=== PATIENT | female | born 1955 | race Caucasian/White ===

== ENCOUNTER 2024-06-02 21:24 | Emergency (ER) | payer MEDICARE, OTHER, SELFPAY ==
[2024-06-02 21:31] VITALS: BP 160/100; PULSE 101; TEMP 36.7; O2SAT 97; BMI 31.5
--- NOTE | 2024-06-02 21:42 | CT_ITS ---
The [address] [address] Patient Name: MARITZA BONILLA MRN: [id number] date: 1955 Sex: F Assigned Patient Location: ER Current Patient Location: Accession/Order Number: [id number] Exam Date: 06/02/2024 22:05 Report Date: 06/02/2024 23:24 At the request of: ALEXIS SHAW Procedure: CT head/brain wo con EXAM: CT head/brain wo con INDICATION: 68 years old; Female. Closed head trauma. TECHNIQUE: CT Head (ax/cor/sag reformats). Ionizing radiation dose reduced via iterative reconstruction/FBP blend and body size kV/mA adjustment. Comparison: None FINDINGS: POSTOPERATIVE CHANGES: None. BRAIN PARENCHYMA: No intraparenchymal or extra-axial hemorrhage. No mass effect. No midline shift or herniation. Patchy low-density in the white matter without mass effect. VENTRICLES/EXTRA-AXIAL SPACES: Normal for patient's age. SINUSES/MASTOIDS: The visualized sinuses are clear although the maxillary sinuses are not completely included. Mastoids and middle ears are clear. Cerumen in the external auditory canals. MSK: No displaced or depressed calvarial fracture. There is a venous avelar present in the left frontal bone. OTHER: No hyperdense intraluminal thrombus. Vascular calcification is present. CT/CT head/brain wo con IMPRESSION: 1. No acute intracranial abnormality. No hemorrhage or mass effect. 2. Nonspecific white matter changes. 3. Vascular calcifications. Electronically authenticated by: SYLVAIN HARRIS Date: 06/02/2024 23:24
--- NOTE | 2024-06-02 21:43 | ED_ITS ---
HPI HPI - Head Injury General Chief complaint: Head Injury Stated complaint: HEAD INJURY Time Seen by Provider: 06/02/24 21:39 Source: patient Mode of arrival: walk-in Limitations: no limitations History of Present Illness HPI Narrative: 68-year-old female presents for an injury to the back of her head. She fell and the back of her head hit the pavement in a parking lot. No LOC and no neck pain. She did not sustain any other injuries. This happened just before coming into the emergency department. Related Data Allergies Allergy/AdvReac Type Severity Reaction Status Date / Time No Known Drug Allergies Allergy Verified 06/02/24 21:31 Opioid HPI Opioid Management Most Recent Pain and Opioid Data: No Data to Display Review of Systems ROS Narrative A ten point review of systems is negative except as noted above. PFSH PFSH Social History Little interest or pleasure in doing things: not at all Feeling down, depressed, or hopeless: not at all Exam Narrative Exam Narrative: Nurses note and vital signs reviewed and patient is not hypoxic. General: The patient appears well and in no apparent distress. Patient is resting comfortably on cart. Skin: Warm, dry, no pallor noted. There is no rash noted. Head: Normocephalic, abrasion with hematoma present just inferior to the occiput. Cervical spine nontender. Eye: Normal conjunctiva, no drainage Ears, Nose, Mouth, and Throat: oral mucosa is moist. Nares patent. Cardiovascular: Regular Rate and Rhythm Respiratory: Patient is in no distress, no accessory muscle use, lungs are clear to auscultation, no wheezing, rales or rhonchi Back: non-tender GI: Soft and nontender Musculoskeletal: The patient has no evidence of calf tenderness, no pitting edema, symmetrical pulses noted bilaterally Neurological: A&O, normal speech Psychiatric: Cooperative Constitutional Vital Signs, click to edit/add: Last Vital Signs Temp 98.1 F 06/02/24 21:31 Pulse 101 H 06/02/24 21:31 Resp 18 06/02/24 21:31 BP 160/100 H 06/02/24 21:31 Pulse Ox 97 06/02/24 21:31 O2 Del Method Room Air 06/02/24 21:31 Course Vital Signs Vital signs: Vital Signs Temperature 98.1 F 06/02/24 21:31 Pulse Rate 101 H 06/02/24 21:31 Respiratory Rate 18 12/22/24 21:31 Blood Pressure 160/100 H 06/02/24 21:31 Pulse Oximetry 97 06/02/24 21:31 Oxygen Delivery Method Room Air 06/02/24 21:31 Temperature 98.1 F 06/02/24 21:31 Pulse Rate 101 H 06/02/24 21:31 Respiratory Rate 18 06/02/24 21:31 Blood Pressure 160/100 H 06/02/24 21:31 Pulse Oximetry 97 06/02/24 21:31 Oxygen Delivery Method Room Air 06/02/24 21:31 MDM - Head Injury MDM Narrative Medical decision making narrative: CT is negative and tetanus status is updated. She is able to be discharged home. Treatment diagnosis and follow-up were discussed with the patient. Differential Diagnosis Differential diagnosis: Likely epidural hematoma, closed head injury, subarachnoid hematoma and subdural hematoma Imaging Data CT scan - head: Radiologist's impression: ITS Impressions Head CT 06/02/24 21:42 IMPRESSION: 1. No acute intracranial abnormality. No hemorrhage or mass effect. 2. Nonspecific white matter changes. 3. Vascular calcifications. Electronically authenticated by: SYLVAIN HARRIS Date: 06/02/2024 23:24 Discharge Plan Discharge Chief Complaint: Head Injury Clinical Impression: Closed head injury Patient Disposition: Home, Self-Care Time of Disposition Decision: 23:31 Condition: Good Mode of Transportation: Private Vehicle Print Language: Citizen Of [place] Instructions: Head Injury (ED) Referrals: Physician,Non-Staff, MD [Primary Care Provider] - 1 week
[2024-06-02] MEDS: ADACEL DIPH,PERTUSS(ACELL),TET VAC/PF 0.5 ML ADULT SYRINGE IM (22:31)
[2024-06-02 23:38] VITALS: BP 148/75; PULSE 88; O2SAT 97
== END 2024-06-02 23:40 | disposition home or self-care (01) ==
PROVIDERS: Emergency Provider Emergency Medicine
DX: S09.8XXA Other specified injuries of head, initial encounter (principal); S00.81XA Abrasion of other part of head, initial encounter; W18.39XA Other fall on same level, initial encounter; Z23 Encounter for immunization
CPT/HCPCS: 70450; 90471; 90715; 99285

== ENCOUNTER 2024-11-07 17:39 | Emergency (ER) | payer MEDICARE, OTHER, SELFPAY ==
--- OUTSIDE RECORDS SUMMARY | 2024-10-24 09:00 | XMS_ITS | Encounter Summary ---
Author Organization [facility] Address [address] [place] [address] Care Team Providers Care Boiler Coverer Helper Name Role Phone Cindy Lofton MD Primary Care Provider [phone] Kayleen Busby PHYSICS TECHNICIAN Unavailable [phone] Reason for Visit * Reason Comments Medicare Annual Wellness Visit Subsequen t Encounter Details Date Type Department Care Team (Late st Contact Info) Description 10/24/2024 9:00 AM EDT Office Visit [facility] [address] [place] [address] Kayleen Busby PHYSICS TECHNICIAN [address] [place], [place] [id number] Mild intermittent asthma without status asthmaticus without complication (CMS/HCC) (Primary Dx); Complete right bundle branch block (RBBB); Primary hypertension (CMS/HCC); Fibromyalgia; BMI 31.0-31.9,adult; Vitamin D deficiency; Mixed hyperlipidemia (CMS/HCC); Former smoker; Medicare annual wellness visit, subsequent Social History Tobacco Use Types Packs/Day Years Used Date Smoking Tobacco: Never Smokeless Tobacco: Never Alcohol Use Standard Drinks/Week Comments Not Currently 0 (1 standard drink = 0.6 oz pure alcohol) Caffeine intake : 1-2 cups per day PHQ-2 Answer Date Recorded Patient Health Questionnaire-2 Score 0 10/24/2024 Comments Unknown Sex and Gender Information Value Date Recorded Sex Assigned at Not on file Legal Sex Female 7:05 PM EDT Gender Identity Not on file Sexual Orientation Not on file documented as of this encounter Last Filed Vital Signs Vital Sign Reading Time Taken Comments Blood Pressure 132/80 10/24/2024 9:47 AM EDT Pulse 76 10/24/2024 8:56 AM EDT Temperature 36 C (96.8 F) 10/24/2024 8:56 AM EDT Respiratory Rate - - Oxygen Saturation 98% 10/24/2024 8:56 AM EDT Inhaled Oxygen Concentration - - Weight 87.1 kg (192 lb) 10/24/2024 8:56 AM EDT Height - - Body Mass Index 31.95 06/10/2024 2:33 PM EST documented in this encounter Functional Status * Over the past 2 weeks, how often have you been bothered by any of the following problems? Question Answer Date of Assessment Author Little interest or pleasure in doing things Not at all 10/24/2024 8:00 AM CIERAT Andreea Grande MA Feeling down, depressed, or hopeless Not at all 10/24/2024 8:00 AM EDT Andreea Grande MA Patient Health Questionnaire -2 Score 0 10/24/2024 8:00 AM EDT Andreea Grande MA * Question Answer Date of Assessment Author Trouble falling or staying asleep, or sleeping too much Not at all 10/24/2024 8:00 AM CIERAT Andreea Grande MA Feeling tired or having trista le energy Not at all 10/24/2024 8:00 AM CIERAT Andreea Grande MA Poor appetite or overeating Not at all 10/24/2024 8: 00 AM CIERAT Andreea Grande MA Feeling bad about yourself - or that you are a failure or have let yourself or your family down Not at all 10/24/2024 8:00 AM CIERAT Andreea Grande MA Trouble concentrating on things, such as reading the newspaper or watching television Not at all 10/24/2024 8:00 AM CIERAT Andreea Grande MA Moving or speaking so slowly that other people could have noticed? Or the opposite - being so fidgety or restless that you have been moving around a lot more than usual. Not at all 10/24/2024 8:00 AM CIERAT Andreea Grande MA Thoughts that you would be better off or hurting yourself in some way Not at all 10/24/2024 8:00 AM CIERAT Andreea Grande MA Patient Health Questionnaire -9 Score 0 10/24/2024 8:00 AM Andreea Herrera MA documented as of this encounter Progress Notes * Kayleen Busby NP - 10/24/2024 9:00 AM EDT Images from the original note were not included. Beverly Maunel is a 69 y.o. female presents with chief complaint of Medicare Annual Wellness Visit Subsequent HPI: Reports she is doing well and feeling good. Has been walking every day and eating well. Has lost 11lbs in the last 4 months. She has never had a colonoscopy, but knows she needs one. Declines today. Over the past 2 weeks, how often have you been bothered by any of the following problems? Little interest or pleasure in doing things: Not at all Feeling down, depressed, or hopeless: Not at all Patient Health Questionnaire-2 Score: 0 Over the past 2 weeks, how often have you been bothered by any of the following problems? Trouble falling or staying asleep, or sleeping too much: Not at all Feeling tired or having little energy: Not at all Poor appetite or overeating: Not at all Feeling bad about yourself - or that you are a failure or have let yourself or your family down: Not at all Trouble concentrating on things, such as reading the newspaper or watching television: Not at all Moving or speaking so slowly that other people could have noticed? Or the opposite - being so fidgety or restless that you have been moving around a lot more than usual.: Not at all Thoughts that you would be better off or hurting yourself in some way: Not at all Patient Health Questionnaire-9 Score: 0 Ray Fall Risk History of Falling, Immediate or Within 3 Months: No Secondary Diagnosis: No Ambulatory Aid: Walks without aid/bedrest/nurse assist Intravenous Therapy/Heparin Lock: No Gait/Transferring: Normal/bedrest/immobile Mental Status: Oriented to own ability Ray Fall Risk Score: 0 Health Risk Assessment Form Do you need help eating, bathing, using the toilet, dressing, or getting around your home?: No Can you prepare your own meals?: Yes Can you do your own housework without help?: Yes Can you shop for groceries or clothes without help?: Yes Do you exercise for about 20 minutes 3 or more days a week?: Yes How confident are you that you can control and manage most of your health problems?: Very confident Can you mange your money, credit cards and accounts, pay bills and taxes?: Yes Vision Screening: Yes, no gross abnormalities Hearing Screening: Not done Cognitive Screening Three Word Registration: River, Josette, Finger Clock Drawing: Normal Clock - 2 Three Word Recall: All 3 words correct - 3 Total Score (0-5 Points): 5 Pain Assessment Pain Score: 3 SUBJECTIVE: MEDICATIONS: ALLERGIES Current Outpatient Medications Medication Instructions acetaminophen (Tylenol 8 Hour) 650 MG ER tablet Every 8 hours atorvastatin (LIPITOR) 10 mg, Daily RT losartan (COZAAR) 50 mg, Daily Multiple Vitamin (multivitamin) capsule 1 capsule, Daily tiZANidine (ZANAFLEX) 2 mg, Oral, Daily PRN No Known Allergies PAST MEDICAL HISTORY: SOCIAL HISTORY SURGICAL HISTORY: Past Medical History: Diagnosis Date Chest pain 1992 Myalgia, unspecified site Skin tear of hand without complication, sequela Social History Tobacco Use Smoking status: Never Smokeless tobacco: Never Substance Use Topics Alcohol use: Not Currently Comment: Caffeine intake : 1-2 cups per day Drug use: Never Past Surgical History: Procedure Laterality Date TUBAL LIGATION 1993 REVIEW OF SYMPTOMS: Review of Systems Constitutional: Negative. HENT: Negative. Respiratory: Negative for cough, shortness of breath and wheezing. Cardiovascular: Negative for chest pain. Gastrointestinal: Negative for abdominal pain. Genitourinary: Negative. Musculoskeletal: Negative. Skin: Negative. Neurological: Negative. OBJECTIVE: Vitals: 10/24/24 0856 BP: 142/90 Pulse: 76 Temp: 96.8 ??F SpO2: 98% Vitals: 10/24/24 0947 BP: 132/80 Pulse: Temp: SpO2: Physical Exam Vitals and nursing note reviewed. Constitutional: Appearance: Normal appearance. HENT: Head: Normocephalic and atraumatic. Right Ear: Hearing and tympanic membrane normal. Left Ear: Hearing and tympanic membrane normal. Nose: Nose normal. Right Turbinates: Not enlarged. Left Turbinates: Not enlarged. Right Sinus: No maxillary sinus tenderness or frontal sinus tenderness. Left Sinus: No maxillary sinus tenderness or frontal sinus tenderness. Mouth/Throat: Lips: [place]. Mouth: Mucous membranes are moist. Pharynx: Oropharynx is clear. Uvula midline. Tonsils: No tonsillar exudate. Eyes: General: Lids are normal. Vision grossly intact. Gaze aligned appropriately. Extraocular Movements: Extraocular movements intact. Conjunctiva/sclera: Conjunctivae normal. Neck: Thyroid: No thyroid mass or thyromegaly. Vascular: No carotid bruit. Trachea: Trachea normal. Cardiovascular: Rate and Rhythm: Normal rate and regular rhythm. Pulses: Normal pulses. Heart sounds: Normal heart sounds. Pulmonary: Effort: Pulmonary effort is normal. Breath sounds: Normal breath sounds and air entry. Abdominal: General: Abdomen is flat. Bowel sounds are normal. Palpations: Abdomen is soft. Musculoskeletal: Cervical back: Full passive range of motion without pain, normal range of motion and neck supple. Lymphadenopathy: Cervical: No cervical adenopathy. Skin: General: Skin is warm. Capillary Refill: Capillary refill takes less than 2 seconds. Neurological: Mental Status: She is alert and oriented to person, place, and time. Sensory: Sensation is intact. Motor: Motor function is intact. Coordination: Coordination is intact. Psychiatric: Attention and Perception: Attention and perception normal. Mood and Affect: Mood and affect normal. Speech: Speech normal. Behavior: Behavior is cooperative. Thought Content: Thought content normal. ASSESSMENT AND PLAN: Assessment/Plan Diagnoses and all orders for this visit: Mild intermittent asthma without status asthmaticus without complication ([facility]) Complete right bundle branch block (RBBB) Primary hypertension ([facility]) - Comprehensive metabolic panel; Future Discussed current management plan. Goal BP less then 130/80. Discussed heart healthy diet, increasefruits and vegetables, limit salt intake. Encouraged increase physical exercise, try to be as active as possible at least 150 mins per week. Importance of weight management with a goal BMI less then 27 discussed. Discussed complications of uncontrolled blood pressure. Patient instructed to monitor BP's 1-2 times a week, keep a log, and bring to next visit. Barriers to care and medication compliance discussed. Patient voices understanding of meds. Fibromyalgia BMI 31.0-31.9,adult Vitamin D deficiency - Vitamin D 25 hydroxy; Future Mixed hyperlipidemia ([facility]) - Lipid panel; Future Former smoker Medicare annual wellness visit, subsequent Wellness performed at [facility] today. Height, weight, BMI, problem list, and immunizations records reviewed. Dental care discussed with patient. Encouraged annual vision screenings and semi-annual dental care. Encouraged healthy eating habits, limit or eliminate junk food and sources of excess calories. Encouraged regular periods of exercise, 150 minutes of exercise weekly or amount appropriate to current level of function. Discussed family/friend/social support and importance of maintaining emotional connections. Follow up annually and as needed. No follow-ups on file. documented in this encounter Plan of Treatment Not on file documented as of this encounter Procedures Procedure Name Priority Date/Time Associated Diagnosis Comments VITAMIN D 25 HYDROXY TOTAL Routine 10/24/2024 9:27 AM EDT Vitamin D deficiency LIPID PANEL Routine 10/24/2024 9:27 AM EDT Mixed hyperlipidemia (CMS/HCC) COMPREHENSIVE METABOLIC PANEL Routine 10/24/2024 9:27 AM EDT Primary hypertension (CMS/HCC) documented in this encounter Results * Vitamin D 25 hydroxy (10/24/2024 9:27 AM EDT) VITAMIN D,25-OH,TOTAL,IA 33 30 - 100 ng/mL [facility] Comment: Vitamin D Status 25-OH Vitamin D: Deficiency: <20 ng/mL Insufficiency: 20 - 29 ng/mL Optimal: > or = 30 ng/mL For 25-OH Vitamin D testing on patients on D2-supplementation and patients for whom quantitation of D2 and D3 fractions is required, the QuestAssureD(TM) 25-OH VIT D, (D2,D3), LC/MS/MS is recommended: order code [id number] (patients >2yrs). See Note 1 Note 1 For additional information, please refer to http://education.Antuit.Blink for iPhone and Android/faq/FXE940 (This link is being provided for informational/ educational purposes only.) Blood Venous blood specimen / Unknown 10/24/2024 9:27 AM EDT 10/24/2024 3:35 PM EDT Narrative Resulting Agency Comment Performing Organization Information Site ID: [email or web address] Name: [email or web address] Address: [address] [facility], [address] [place] [phone] Director: Avery Hanson MD us Kayleen Busby PHYSICS TECHNICIAN LAB BLOOD ORDERABLES Fi nal Result Performing Organization Address [facility]/ZIP Co de Phone Number [facility] * Comprehensive metabolic panel (10/24/2024 9:27 AM EDT) [facility] Glucose 95 65 - 99 mg/dL [facility] Comment: Fasting reference interval BUN 17 7 - 25 mg/dL [facility] Creatinine 0.63 0.50 - 1.05 mg/dL [facility] EGFR 97 > OR = 60 mL/min/1. 73m2 [facility] BUN/CREATININE RATIO SEE NOTE: 6 - 22 (calc) [facility] Comment: Not Reported: BUN and Creatinine are within reference range. Sodium 140 135 - 146 mmol/L [facility] Potassium, Bld 3.9 3.5 - 5.3 mmol/L [facility] Chloride 105 98 - 110 mmol/L [facility] Carbon Dioxide 28 20 - 32 mmol/L [facility] Calcium 9.1 8.6 - 10.4 mg/dL [facility] PROTEIN, TOTAL 6.9 6.1 - 8.1 g/dL [facility] ALBUMIN 4.2 3.6 - 5.1 g/dL [facility] GLOBULIN 2.7 1.9 - 3.7 g/dL (calc) [facility] ALBUMIN/GLOBULIN RATIO 1.6 1.0 - 2.5 (calc) [facility] BILIRUBIN, TOTAL 0.5 0.2 - 1.2 mg/dL [facility] ALKALINE PHOSPHATASE 92 37 - 153 U/L [facility] AST 31 10 - 35 U/L [facility] ALT 27 6 - 29 U/L [facility] Blood Venous blood specimen / Unknown 10/24/2024 9:27 AM EDT 10/24/2024 3:35 PM EDT Narrative Resulting Agency Comment Performing Organization Information Site ID: [email or web address] Name: [email or web address] Address: [address] [place] [phone] Director: Pavithra Herrera us Kayleen Busby PHYSICS TECHNICIAN LAB BLOOD ORDERABLES Fi nal Result Performing Organization Address [facility]/ZIP Co de Phone Number [facility] * Lipid panel (10/24/2024 9:27 AM EDT) CHOLESTEROL, TOTAL 155 <200 mg/dL [facility] HDL CHOLESTEROL 70 > OR = 50 mg/dL [facility] TRIGLYCERIDES 59 <150 mg/dL [facility] LDL-CHOLESTEROL 71 mg/dL (calc) [facility] Comment: Reference range: <100 Desirable range <100 mg/dL for primary prevention; <70 mg/dL for patients with CHD or diabetic patients with > or = 2 CHD risk factors. LDL-C is now calculated using the Navarro calculation, which is a validated novel method providing better accuracy than the Friedewald equation in the estimation of LDL-C. Alin VICK et al. ZEINAB. 2013;310(19): 5271-0823 (http://education.Mindjet/faq/JTY823) CHOL/HDLC RATIO 2.2 <5.0 (calc) [facility] NON HDL CHOLESTEROL 85 <130 mg/dL (calc) [facility] Comment: For patients with diabetes plus 1 major ASCVD risk factor, treating to a non-HDL-C goal of <100 mg/dL (LDL-C of <70 mg/dL) is considered a therapeutic option. Blood Venous blood specimen / Unknown 10/24/2024 9:27 AM EDT 10/24/2024 3:35 PM EDT Narrative Resulting Agency Comment Performing Organization Information Site ID: QPT Name: [email or web address] Address: [address] [place] [phone] Director: Avery Hanson MD Kayleen Busby NP LAB BLOOD ORDERABLES Fi nal Result [facility] documented in this encounter Visit Diagnoses Diagnosis Mild intermittent asthma without status asthmaticus without complication (CMS/HCC)- Primary Complete right bundle branch block (RBBB) Primary hypertension (CMS/HCC) Unspecified essential hypertension Fibromyalgia Unspecified myalgia and myositis BMI 31.0-31.9,adult Vitamin D deficiency Mixed hyperlipidemia (CMS/HCC) Mixed hyperlipidemia Former smoker Personal history of tobacco use, presenting hazards to health Medicare annual wellness visit, subsequent documented in this encounter Additional Health Concerns Assessment Noted Time PHQ-9 Depression Total Score: 0 10/25/19 8:00 AM EDT documented as of this encounter Care Teams Boiler Coverer Helper Relationship Specialty Start Date End Date Cindy Lofton MD [address] [place] [address] PCP - General Family Medicine 10/18/22 Kayleen Busby NP [address] [place], [place] [id number] PCP - [facility] Re[facility] 07/19/24 documented as of this encounter
--- OUTSIDE RECORDS SUMMARY | 2024-10-28 14:00 | XMS_ITS | Encounter Summary ---
Author Organization [facility] Address [address] [place] [address] Phone Care Team Providers Care Watch Guard Gate Name Role Phone Cindy Lofton MD Primary Care Provider [phone] Reason for Referral * Consultation (Routine) - Authorized Specialty Diagnoses / Procedures Referred By Edu erickson Referred To Contact Cardiology Diagnoses Primary hypertension Procedures Follow Up In Cardiology Silvana Soares MD [address] [place] [address] Phone: tel: fax: Silvana Soares MD [address] [place] [address] Phone: tel: fax: Referral ID Status Reason Start Date Expiration Date V isits Requested Visits Authorized [id number] Authorized 10/28/2024 10/28/2025 1 1 Reason for Visit * Reason Comments Annual Exam 1 year Follow up for Hypertension * Consultation (Routine) - Authorized Specialty Diagnoses / Procedures Referred By Edu erickson Referred To Contact Cardiology Diagnoses Primary hypertension Procedures Follow Up In Cardiology Silvana Soares MD Phone: tel: fax: Silvana Soares MD [address] [place] [address] Phone: tel: fax: Referral ID Status Reason Start Date Expiration Date V isits Requested Visits Authorized [id number] Authorized 10/09/2023 10/08/2024 1 1 Encounter Details Date Type Department Care Team (Late st Contact Info) Description 10/28/2024 2:00 PM EDT Office Visit [facility] [address] [facility] [address] [place] [address] Silvana Soares MD [address] [facility] [address] [place] [address] Primary hypertension; Mixed hyperlipidemia; Former smoker; Body mass index (BMI) of 28.0 to 28.9 in adult Social History Tobacco Use Types Packs/Day Years Used Date Smoking Tobacco: Former Cigarettes S tarted: 1986 Smokeless Tobacco: Never Alcohol Use Standard Drinks/Week Comments Never 0 (1 standard drink = 0.6 oz pur e alcohol) Comments Unknown Sex and Gender Information Value Date Recorded Sex Assigned at Not on file Legal Sex Female 7:13 PM EST Gender Identity Not on file Sexual Orientation Not on file COVID-19 Exposure Response Date Recorded In the last 10 days, have yo u been in contact with someone who was confirmed or suspected to have Coronavirus/COVID-19? No / Unsure 10/28/2024 1:35 PM EDT documented as of this encounter Last Filed Vital Signs Vital Sign Reading Time Taken Comments Blood Pressure 134/84 10/28/2024 1:41 PM EDT Pulse 68 10/28/2024 1:41 PM EDT Temperature - - Respiratory Rate - - Oxygen Saturation - - Inhaled Oxygen Concentration - - Weight 86.6 kg (191 lb) 10/28/2024 1:41 PM EDT Height 175.3 cm (5' 9 ) 10/28/2024 1:41 PM EDT Body Mass Index 28.21 10/28/2024 1:41 PM EDT documented in this encounter Patient Instructions * Patient Instructions* Kiersten Magaña CMA - 10/28/2024 2:00 PM EDT Please bring all medicines, vitamins, and herbal supplements with you when you come to the office. Prescriptions will not be filled unless you are compliant with your follow up appointments or have a follow up appointment scheduled as per instruction of your physician. Refills should be requested at the time of your visit. Fall Prevention Education Given documented in this encounter Progress Notes * Silvana Soares MD - 10/28/2024 2:00 PM EDT Images from the original note were not included. Chief Complaint: Chief Complaint Patient presents with Annual Exam 1 year Follow up for Hypertension Subjective : Interval review of systems is negative for chest discomfort pressure tightness heaviness palpitations lightheadedness orthopnea paroxysmal nocturnal dyspnea dependent edema or claudication TI Review of Systems 12 point review of systems is negative or noncontributory except as noted. Patient reports feeling great. History so Far : 1. This is a postmenopausal female with an incomplete right bundle branch block and exertional shortness of breath, and diffuse myalgia, she carries a diagnosis of fibromyalgia. She quit smoking in 1986 after smoking for about 10 years. 2. Stress test May 2022-patient exercised to a workload of 7 METS Wood treadmill score of 5 blood appropriate hemodynamic response no cardiac symptoms or diagnostic ST-T. Test was done 05/18/2022. Hypertensive at baseline with hypertensive response to exercise. 3. Echocardiogram May 2022-LVEF 70% impaired progression pattern of LV diastolic filling aortic root size normal no pericardial effusion left atrial diameter 3.6 cm, normal RV size and systolic function, trace mitral regurgitation, mild tricuspid regurgitation, normal IVC, RVSP millimeters merc ury 4. Hypertension 5. Low vitamin D level-27 on 10/02/2023 Objective Wt Readings from Last 3 Encounters: 10/28/24 86.6 kg (191 lb) 10/09/23 89.7 kg (197 lb 12.8 oz) 12/21/22 88 kg (194 lb) Vitals: 10/28/24 1341 BP: 134/84 BP Location: Left arm Patient Position: Sitting Pulse: 68 Weight: 86.6 kg (191 lb) Height: 1.753 m (5' 9 ) Physical Exam: GENERAL APPEARANCE: in no acute distress. CHEST: Symmetric and non-tender. INTEGUMENT: Skin warm and dry HEENT: No gross abnormalities identified.No pallor or scleral icterus. NECK: Supple, no JVD, no bruit. NEURO/PSHCY: Alert and oriented x3; appropriate behavior and responses and responses LUNGS: Clear to auscultation bilaterally; normal respiratory effort. HEART: Rate and rhythm regular with no evident murmur; no gallop appreciated. ABDOMEN: Soft, non tender. MUSCULOSKELETAL: No gross deformities. EXTREMITIES: Warm There is no edema noted. Meds: Current Outpatient Medications Medication Instructions atorvastatin (LIPITOR) 10 mg, oral, Daily cyclobenzaprine (Flexeril) 10 mg tablet 1 tablet, 3 times daily PRN losartan (COZAAR) 100 mg, oral, Daily multivitamin tablet 1 tablet, Daily Allergies: Patient has no known allergies. LABS: October 2024-BUN 17 creatinine 0.63 GFR 97 sodium 140 potassium 3.9 liver enzymes normal total cholesterol 155 HDL 70 triglycerides 59 LDL 71 total cholesterol to HDL ratio 2.2 Testing Reviewed Reviewed all available pertinent laboratory data and diagnostic testing results that occurred afterthe last office visit with me Assessment: 1. Primary hypertension Follow Up In Cardiology 2. Mixed hyperlipidemia 3. Former smoker 4. Body mass index (BMI) of 28.0 to 28.9 in adult Clinical Decision Making: Patient is doing well on current medical therapy which will be continued.Blood pressure is at target. Lipid profile is at target she is following a heart healthy lifestyle Follow up : 1 year ISafia LPN am scribing for, and in the presence of Dr. Silvana Soares MD, FACC. I, Dr. Silvana Soares MD, FACC, personally performed the services described in the documentation as scribed by Safia Messer LPN in my presence, and confirm it is both accurate and complete. documented in this encounter Plan of Treatment Upcoming Encounters Date Type Department Care Team (Late st Contact Info) Description 10/31/2025 10:00 AM EDT Office [facility] [address] [facility] [address] [place] [address] Silvana Soares MD [address] [facility] [address] [place] [address] Scheduled Orders Name Type Priority Associated Diagnoses Orde r Schedule Comprehensive Metabolic Panel Lab Routine Primary hypertension Expected: 04/30/2025 (Approximate), Expires: 10/28/2025 documented as of this encounter Visit Diagnoses Diagnosis Primary hypertension Unspecified essential hypertension Mixed hyperlipidemia Former smoker Personal history of tobacco use, presenting hazards to health Body mass index (BMI) of 28.0 to 28.9 in adult documented in this encounter Additional Health Concerns Assessment Noted Time A fall risk assessment has been complete d for the patient 10/28/2024 1:43 PM EDT documented as of this encounter Care Teams Watch Guard Gate Relationship Specialty Start Date End Date Cindy Lofton MD [address] [place] [address] PCP - General 03/28/22 documented as of this encounter
[2024-11-07] VITALS (14 sets, daily range): BP systolic 153; BP diastolic 83; PULSE 70–91; TEMP 36.5; O2SAT 91–100; BMI 69.0
--- OUTSIDE RECORDS SUMMARY | 2024-11-07 17:45 | XMS_ITS | Encounter Summary ---
Author Organization [facility] Address [address] [place] [address] Phone Care Team Providers Care Core Inserter Name Role Phone Cindy Lofton MD Primary Care Provider [phone] Reason for Visit * Reason Comments Med Refill Encounter Details Date Type Department Care Team (Late st Contact Info) Description 06/04/[address] [address] Silvana Soares MD [address] [place] [address] [phone] Mixed hyperlipidemia Social History Tobacco Use Types Packs/Day Years Used Date Smoking Tobacco: Never Assessed Comments Unknown Sex and Gender Information Value Date Recorded Sex Assigned at Not on file Legal Sex Female 7:13 PM EST Gender Identity Not on file Sexual Orientation Not on file documented as of this encounter Miscellaneous Notes * Telephone Encounter - Kiersten Magaña CMA - 06/07/2023 11:30 AM EST POV: 09/18/23 documented in this encounter Plan of Treatment Upcoming Encounters Date Type Department Care Team (Late st Contact Info) Description 10/31/2025 10:00 AM EDT Office Visit [address] [address] Silvana Soares MD [address] [place] [address] [phone] documented as of this encounter Visit Diagnoses Diagnosis Mixed hyperlipidemia documented in this encounter Care Teams Core Inserter Relationship Specialty Start Date End Date Cindy Lofton MD [address] [place] [address] PCP - General 03/28/22 documented as of this encounter
--- OUTSIDE RECORDS SUMMARY | 2024-11-07 17:45 | XMS_ITS | Encounter Summary ---
Author Organization [facility] Address [address] [place] [address] Care Team Providers Care Gear Nicker Name Role Phone Cindy Lofton MD Primary Care Provider [phone] Kayleen Busby LOCK INSTALLER Unavailable [phone] Encounter Details Date Type Department Care Team (Late st Contact Info) Description 09/06/2024 Orders Only [facility] [address] [place] [address] Cindy Lofton MD [address] [place] [address] Social History Tobacco Use Types Packs/Day Years Used Date Smoking Tobacco: Never Smokeless Tobacco: Never Alcohol Use Standard Drinks/Week Comments Not Currently 0 (1 standard drink = 0.6 oz pure alcohol) Caffeine intake : 1-2 cups per day PHQ-2 Answer Date Recorded Patient Health Questionnaire-2 Score 0 08/03/2023 Comments Unknown Sex and Gender Information Value Date Recorded Sex Assigned at Not on file Legal Sex Female 7:05 PM EDT Gender Identity Not on file Sexual Orientation Not on file documented as of this encounter Plan of Treatment Not on file documented as of this encounter Visit Diagnoses Not on filedocumented in this encounter Additional Health Concerns Assessment Noted Time PHQ-9 Depression Total Score: 0 10/02/19 24 12:00 PM EDT documented as of this encounter Care Teams Gear Nicker Relationship Specialty Start Date End Date Cindy Lofton MD [address] [place] [address] PCP - General Family Medicine 10/18/22 Kayleen Busby NP [address] [place] [address] PCP - ACO Reach 07/19/24 documented as of this encounter
--- OUTSIDE RECORDS SUMMARY | 2024-11-07 17:45 | XMS_ITS | Encounter Summary ---
Author Organization [facility] Address [address] [place] [address] Phone Care Team Providers Care Switchboard Installer Name Role Phone Cindy Lofton MD Primary Care Provider [phone] Encounter Details Date Type Department Care Team (Late st Contact Info) Description 09/30/2022 Orders Only [facility] [address] [place] [address] Conversion, Onbase Social History Tobacco Use Types Packs/Day Years Used Date Smoking Tobacco: Never Assessed Comments Unknown Sex and Gender Information Value Date Recorded Sex Assigned at Not on file Legal Sex Female 7:13 PM EST Gender Identity Not on file Sexual Orientation Not on file documented as of this encounter Plan of Treatment Upcoming Encounters Date Type Department Care Team (Late st Contact Info) Description 10/31/2025 10:00 AM EDT Office Visit [place] [address] [facility] [address] [place] [address] Silvana Soares MD [address] [facility] [address] [place] [address] Scheduled Orders Name Type Priority Associated Diagnoses Orde r Schedule OUTSIDE LAB SCAN Lab Ordered: 09/30/2022 OUTSIDE LAB SCAN Lab Ordered: 09/30/2022 documented as of this encounter Visit Diagnoses Not on filedocumented in this encounter Care Teams Switchboard Installer Relationship Specialty Start Date End Date Cindy Lofton MD [address] [place] [address] PCP - General 03/28/22 documented as of this encounter
--- OUTSIDE RECORDS SUMMARY | 2024-11-07 17:45 | XMS_ITS | Clinical Summary ---
Author Organization [facility] Address [address] [place] [address] Care Team Providers Care Tennis Instructor Name Role Phone Cindy Lofton MD Primary Care Provider [phone] Kayleen Busby CONTINUUM OF CARE MANAGER Unavailable [phone] Allergies No known active allergies Medications acetaminophen (Tylenol 8 Hour) 650 MG ER tablet every 8 (eight) hours 01/11/2022 Active atorvastatin (Lipitor) 10 MG tablet Take 10 mg by mouth in the morning. 07/03/2023 Active losartan (Cozaar) 50 MG tablet Take 50 mg by mouth Daily Active Multiple Vitamin (multivitamin) capsule Take 1 capsule by mouth Daily Active tiZANidine (Zanaflex) 2 MG tabletIndicatio ns:Fibromyalgia Take 1 tablet (2 mg) by mouth Daily as needed for muscle spasms 30 tablet 05/07/2024 Active Active Problems Problem Noted Date Diagnosed Date BMI 31.0-31.9,adult 10/09/2023 Former smoker 10/09/2023 Vitamin D deficiency 08/03/2023 Complete right bundle branch block (RBBB) 2022 Mixed hyperlipidemia 06/07/2023 Primary hypertension 06/07/2023 Asthma without status asthmaticus 03/15/2011 Fibromyalgia 03/15/2011 Resolved Problems Problem Noted Date Diagnosed Date Resolved Date Medication course changed 10/09/2023 Abnormal EKG 06/07/2023 10/02/2023 Elevated blood pressure reading 06/07/2023 10/02/2023 Encounters Date Type Department Care Team Description 10/25/2024 Results Follow-Up [facility] [address] [place] [address] Latha Pino NP 10/24/2024 9:00 AM EDT Office Visit [facility] [address] [facility] [place] [address] Kayleen Busby NP Mild intermittent asthma without status asthmaticus without complication (CMS/HCC) (Primary Dx); Complete right bundle branch block (RBBB); Primary hypertension (CMS/HCC); Fibromyalgia; BMI 31.0-31.9,adult; Vitamin D deficiency; Mixed hyperlipidemia (CMS/HCC); Former smoker; Medicare annual wellness visit, subsequent 10/24/2024 Bamboo flowsheet [facility] [address] [place] [address] Kayleen Busby NP 10/24/2024 Travel 09/06/[address] [facility] [address] [place] [address] Andreea Grande MA 09/06/2024 Orders Only [facility] [address] [place] [address] Cindy Lofton MD 09/05/2024 1:00 PM EDT Ancillary Procedure [facility] [address] [place] [address] [place] [address] Screening mammogram for breast cancer 09/05/2024 Travel 08/28/2024 Telephone [facility] [address] [place] [address] Cindy Lofton MD from Last 3 Months Immunizations Immunization Administration Dates Next Due Tdap 06/02/2024,05/08/2014 Family History Medical History Relation Name Comments Kidney disease Father Pneumonia Father Coronary artery disease Mother Diabetes Mother Heart disease Mother Relation Name Status Comments Father Mother Social History Tobacco Use Types Packs/Day Years Used Date Smoking Tobacco: Never Smokeless Tobacco: Never Tobacco Cessation:Counseling Given: Not Answered Alcohol Use Standard Drinks/Week Comments Not Currently [...] on file Sexual Orientation Not on file Last Filed Vital Signs Vital Sign Reading Time Taken Comments Blood Pressure 132/80 10/24/2024 9:47 AM EDT Pulse 76 10/24/2024 8:56 AM EDT Temperature 36 C (96.8 F) 10/24/2024 8:56 AM EDT Respiratory Rate - - Oxygen Saturation 98% 10/24/2024 8:56 AM EDT Inhaled Oxygen Concentration - - Weight 87.1 kg (192 lb) 10/24/2024 8:56 AM EDT Height 165.1 cm (5' 5 ) 06/10/2024 2:33 PM EST Body Mass Index 31.95 06/10/2024 2:33 PM EST Plan of Treatment Health Maintenance Due Date Last Done Comments CT Colonography 1956 FIT-DNA 1956 FIT 1956 FOBT 1955 Sigmoidoscopy 1955 Pneumococcal Vaccine: 65+ Ye ars (1 of 2 - PCV) 08/13/1975 Colonoscopy 10/24/2024 08/16/2017 Colorectal Cancer Screening 10/24/2024 Influenza Vaccine (Season Ended) 2025 Mammogram 09/05/2025 09/05/2024, 07/14, 08/09/2023, Additional history exists Medicare Annual Wellness (AWV) 10/24/2025 0 10/24/2024, 10/24/2024, 10/02/2023, Additional history exists Procedures Procedure Name Priority Date/Time Associated Diagnosis Comments VITAMIN D 25 HYDROXY TOTAL Routine 10/24/2024 9:27 AM EDT Vitamin D deficiency COMPREHENSIVE METABOLIC PANEL Routine 10/24/2024 9:27 AM EDT Primary hypertension (CMS/HCC) LIPID PANEL Routine 10/24/2024 9:27 AM EDT Mixed hyperlipidemia (CMS/HCC) BI MAMMOGRAM SCREENING TOMOSYNTHESIS BILATERAL Routine 09/05/2024 1:11 PM EDT Screening mammogram for breast cancer COLONOSCOPY Routine 08/16/2017 Asthma (CMS/HCC) Encounter for screening for malignant neoplasm of colon Polyp of cervix uteri Encounter for general adult medical examination without abnormal findings Fibromyalgia from Last 3 Months or Most Recently Relevant to Health Maintenance Results * Vitamin D 25 hydroxy (10/24/2024 [...] D, (D2,D3), LC/MS/MS is recommended: order code 09565 (patients >2yrs). See Note 1 Note 1 For additional information, please refer to http://education.bounce.io/faq/SHP881 (This link is being provided for informational/ educational purposes only.) Blood Venous blood specimen / Unknown 10/24/2024 9:27 AM EDT 10/24/2024 3:35 PM EDT Narrative Resulting Agency Comment Performing Organization Information Site ID: QPT Name: [facility] Address: [address] [place] [address], [address] [place] [phone] Director: Avery Hanson MD us Kayleen Busby NP LAB BLOOD ORDERABLES Fi nal Result [facility] * Lipid panel (10/24/2024 9:27 AM [...] LDL-C. Alin VICK et al. ZEINAB. 2013;310(19): 4166-9692 (http://education.[employer].NGRAIN/faq/CXQ675) CHOL/HDLC RATIO 2.2 <5.0 (calc) [facility] NON [...] Performing Organization Information Site ID: QPT Name: [facility] Address: [address] [place] [address], [address] [place] [phone] Director: Avery Hanson MD Kayleen Busby CONTINUUM OF CARE MANAGER LAB BLOOD ORDERABLES Fi nal Result [facility] * Comprehensive metabolic panel (10/24/2024 9:27 AM EDT) Glucose 95 65 - 99 mg/dL [facility] [...] Performing Organization Information Site ID: QTW Name: [facility] Address: [address] [place] [phone] Director: Pavithra Herrera Kayleen Busby CONTINUUM OF CARE MANAGER LAB BLOOD ORDERABLES Fi nal Result [facility] * Bilateral screening mammogram with tomosynthesis (09/05/2024 1:11 PM EDT) Anatomical Region Laterality Modality Breast Bilateral Mammography 09/05/2024 2:42 PM EDT Impressions 09/05/2024 2:48 PM EDT Impression: No specific evidence of malignancy seen in either breast. BIRADS 2 - Benign Findings DENSITY: There are scattered areas of fibroglandular density. FOLLOW-UP: Routine Screening Mammogram ELECTRONICALLY SIGNED BY: Faisal Wright M.D. Narrative 09/05/2024 2:48 PM EDT Examination: BI MAMMOGRAM SCREENING TOMOSYNTHESIS BILATERAL Clinical History: screening Technique: Screening digital mammography study of both breasts was performed with 2-D and 3-D tomosynthesis imaging. Study was compared to the prior exam dated 08/09/2023. Findings: There is no evidence of interval dominant spiculated mass, grouped microcalcifications, or skin thickening which would be suggestive of malignancy. Mild scattered benign-appearing calcifications noted bilaterally. A partially visualized axillary lymph node is suggested on the left which appears grossly unremarkable. Procedure Note Faisal Wright MD - 09/05/2024 Examination: BI MAMMOGRAM SCREENING TOMOSYNTHESIS BILATERAL Clinical History: screening Technique: Screening digital mammography study of both breasts wasperformed with 2-D and 3-D tomosynthesis imaging. Study was compared tothe prior exam dated 08/09/2023. Findings: There is no evidence of interval dominant spiculated mass,grouped microcalcifications, or skin thickening which would be suggestiveof malignancy. Mild scattered benign-appearing calcifications noted bilaterally. Apartially visualized axillary lymph node is suggested on the left whichappears grossly unremarkable. IMPRESSION: Impression: No specific evidence of malignancy seen in either breast. BIRADS 2 - Benign Findings DENSITY: There are scattered areas of fibroglandular density. FOLLOW-UP: Routine Screening Mammogram ELECTRONICALLY SIGNED BY: Faisal Wright M.D. Latha Pino NP IMG BI PROCEDURES Final Result * Colonoscopy (08/16/2017) Anatomical Region Laterality Modality Endoscopy 08/16/2017 Narrative 08/16/2017 12:00 AM EST PERFORMED AT [facility] LOCATION:[place] [address] Procedure Note CONVERSION, GENERIC - 10/26/2022 PERFORMED AT [facility] LOCATION:[place] [address] [address] ENDOSCOPY PROCEDURE ORDERABLES Final Result from Last 3 Months or Most Recently Relevant to Health Maintenance Insurance MEDICARE [facility] [place] [address] Care Teams Tennis Instructor Relationship Specialty Start Date End Date Cindy Lofton MD [address] [place] [address] PCP - General Family Medicine 10/18/22 Kayleen Busby NP [address] [place] [address] PCP - ACO Reach 07/19/24
--- OUTSIDE RECORDS SUMMARY | 2024-11-07 17:45 | XMS_ITS | Encounter Summary ---
Author Organization [facility] Address [address] [place] [address] Care Team Providers Care Concert Singer Name Role Phone Cindy Lofton MD Primary Care Provider [phone] Kayleen Busby POLO COACH Unavailable [phone] Encounter Details Date Type Department Care Team (Latest Contact Info) Description 10/24/2024 Travel Social History Tobacco Use Types Packs/Day Years [...] on file documented as of this encounter Functional Status * Over the past 2 weeks, how often have you been bothered by any of the following problems? Question Answer Date of Assessment Author Little interest or pleasure in doing things Not at all 10/24/2024 8:00 AM EDT Andreea Grande MA Feeling down, depressed, or [...] energy Not at all 10/24/2024 8:00 AM EDAndreea Salmeron MA Poor appetite or overeating Not at all 10/24/2024 8: 00 AM EDT Andreea Grande MA Feeling bad about yourself - or that you are a failure or have let yourself or your family down Not at all 10/24/2024 8:00 AM CIERAT Andreea Grande MA Trouble concentrating on things, such as reading the newspaper or watching television Not at all 10/24/2024 8:00 AM EDT Andreea Grande MA Moving or speaking so [...] Questionnaire -9 Score 0 10/24/2024 8:00 AM EDT Andreea Grande MA documented as of this encounter Plan of Treatment Not on file documented as of this encounter Visit Diagnoses Not on filedocumented in this encounter Additional Health Concerns Assessment Noted Time PHQ-9 Depression Total Score: 0 10/25/19 8:00 AM EDT documented as of this encounter Care Teams Concert Singer Relationship Specialty Start Date End Date Cindy Lofton MD [address] [place] [address] PCP - General Family Medicine 10/18/22 Kayleen Busby NP [address] [facility] [place] [address] PCP - ACO Reach 07/19/24 documented as of this encounter
--- OUTSIDE RECORDS SUMMARY | 2024-11-07 17:45 | XMS_ITS | Encounter Summary ---
Author Organization [facility] Address [address] [place] [address] Phone Care Team Providers Care Validation Specialist Name Role Phone Cindy Lofton MD Primary Care Provider [phone] Encounter Details Date Type Department Care Team (Latest Contact Info) Description 10/28/2024 Travel Social History Tobacco Use Types Packs/Day [...] PM EDT documented as of this encounter Plan of Treatment Upcoming Encounters Date Type Department Care Team (Late st Contact Info) Description 10/31/2025 10:00 AM EDT Office Visit [facility] [address] [facility] [address] [place] [address] Silvana Soares MD [address] [facility] [address] [place] [address] documented as of this encounter Visit Diagnoses Not on filedocumented in this encounter Additional Health Concerns Assessment Noted Time A fall risk assessment has been complete d for the patient 10/28/2024 1:43 PM EDT documented as of this encounter Care Teams Validation Specialist Relationship Specialty Start Date End Date Cindy Lofton MD [address] [place] [id number] PCP - General 03/28/22 documented as of this encounter
--- OUTSIDE RECORDS SUMMARY | 2024-11-07 17:45 | XMS_ITS | Encounter Summary ---
Author Organization [facility] Address [address] [place] [address] Phone Care Team Providers Care Bid Manager Name Role Phone Cindy Lofton MD Primary Care Provider [phone] Encounter Details Date Type Department Care Team (Late st Contact Info) Description 10/11/2022 Orders Only [facility] [address] [place] [address] Conversion, Onbase Social History Tobacco Use Types [...] Description 10/31/2025 10:00 AM EDT Office Visit [place] [address] [facility] [address] [place] [address] Silvana Soares MD [address] [facility] [address] [place] [address] Scheduled Orders Name Type Priority Associated Diagnoses Orde r Schedule OUTSIDE LAB SCAN Lab Ordered: 10/11/2022 documented as of this encounter Visit Diagnoses Not on filedocumented in this encounter Care Teams Bid Manager Relationship Specialty Start Date End Date Cindy Lofton MD [address] [place] [address] PCP - General 03/28/22 documented as of this encounter
--- OUTSIDE RECORDS SUMMARY | 2024-11-07 17:45 | XMS_ITS | Encounter Summary ---
Author Organization [facility] Address [address] [place] [address] Care Team Providers Care Engineering Manager Electronics Name Role Phone Cindy Lofton MD Primary Care Provider [phone] Kayleen Busby NEUROLOGICAL SURGERY TEACHER Unavailable [phone] Encounter Details Date Type Department Care Team (Late st Contact Info) Description 10/24/2024 Bamboo flowsheet [facility] [address] [place] [address] Kayleen Busby NP [address] [place] [address] Social History Tobacco Use Types Packs/Day Years [...] much Not at all 10/24/2024 8:00 AM EDT Andreea Grande MA Feeling tired or having trista le energy Not at all 10/24/2024 8:00 AM EDT Andreea Grande MA Poor appetite or overeating Not at all 10/24/2024 8: 00 AM EDT Andreea Grande MA Feeling bad about yourself - or that you are a failure or have let yourself or your family down Not at all 10/24/2024 8:00 AM EDT Andreea Grande MA Trouble concentrating on things, such as reading the newspaper or watching television Not at all 10/24/2024 8:00 AM EDT Andreea Grande MA Moving or speaking so slowly that other people could have noticed? Or the opposite - being so fidgety or restless that you have been moving around a lot more than usual. Not at all 10/24/2024 8:00 AM EDT Andreea Grande MA Thoughts that you would be better off or hurting yourself in some way Not at all 10/24/2024 8:00 AM EDT Andreea Grande MA Patient Health Questionnaire -9 Score 0 10/24/2024 8:00 AM EDT Andreea Grande MA documented as of this encounter Plan of Treatment Not on file documented as of this encounter Visit Diagnoses Not on filedocumented in this encounter Additional Health Concerns Assessment Noted Time PHQ-9 Depression Total Score: 0 10/25/19 8:00 AM EDT documented as of this encounter Care Teams Engineering Manager Electronics Relationship Specialty Start Date End Date Cindy Lofton MD [address] [facility] [place] [address] PCP - General Family Medicine 10/18/22 Kayleen Busby NP [address] [facility] [address] PCP - ACO Reach 07/19/24 documented as of this encounter
--- OUTSIDE RECORDS SUMMARY | 2024-11-07 17:45 | XMS_ITS | Encounter Summary ---
Author Organization [facility] Address [address] [place] [address] Phone Care Team Providers Care Chronograph Operator Name Role Phone Cindy Lofton MD Primary Care Provider [phone] Encounter Details Date Type Department Care Team (Late st Contact Info) Description 01/11/2022 Orders Only [facility] [address] [place] [address] Conversion, Onbase Social History Tobacco Use Types [...] Description 10/31/2025 10:00 AM EDT Office Visit [place] [id number] [facility] [address] [place] [address] Silvana Soares MD [address] [facility] [address] [place] [address] Scheduled Orders Name Type Priority Associated Diagnoses Orde r Schedule OUTSIDE LAB SCAN Lab Ordered: 01/11/2022 documented as of this encounter Visit Diagnoses Not on filedocumented in this encounter Care Teams Chronograph Operator Relationship Specialty Start Date End Date Cindy Lofton MD [address] [place] [address] PCP - General 03/28/22 documented as of this encounter
--- OUTSIDE RECORDS SUMMARY | 2024-11-07 17:45 | XMS_ITS | Clinical Summary ---
Author Organization [facility] Address [address] [place] [address] Phone Care Team Providers Care Inventory Auditor Name Role Phone Cindy Lofton MD Primary Care Provider [phone] Allergies No known active allergies Medications cyclobenzaprine (Flexeril) 10 mg tablet Take 1 tablet (10 mg) by mouth 3 times a day as needed. Active multivitamin tablet Take 1 tablet by mouth once daily. Active atorvastatin (Lipitor) 10 mg tabletIndications: Mixed hyperlipidemia Take 1 tablet (10 mg) by mouth once daily. 90 tablet 3 5 10/29/19 26 Active losartan (Cozaar) 100 mg tabletIndications: Primary hypertension Take 1 tablet (100 mg) by mouth once daily. 90 tablet 3 5 10/29/19 26 Active atorvastatin (Lipitor) 10 mg tabletIndications: Mixed hyperlipidemia Take 1 tablet (10 mg) by mouth once daily. 90 tablet 3 4 10/29/19 25 Discontinu ed(Reorder ) losartan (Cozaar) 100 mg tabletIndications: Primary hypertension Take 1 tablet (100 mg) by mouth once daily. 90 tablet 3 4 10/29/19 25 Discontinu ed(Reorder ) Active Problems Problem Noted Date Diagnosed Date Body mass index (BMI) of 28.0 to 28.9 in adult 0 10/28/2024 BMI 31.0-31.9,adult 10/09/2023 Former smoker 10/09/2023 Medication course changed 10/09/2023 Abnormal EKG 06/07/2023 Complete right bundle branch block (RBBB) 2022 Elevated blood pressure reading 06/07/2023 Fibromyalgia 06/07/2023 Mixed hyperlipidemia 06/07/2023 Primary hypertension 06/07/2023 Encounters Date Type Department Care Team Description 10/28/2024 2:00 PM EDT Office Visit [address] [phone] Silvana Soares MD Primary hypertension; Mixed hyperlipidemia; Former smoker; Body mass index (BMI) of 28.0 to 28.9 in adult 10/28/2024 Travel from Last 3 Months Immunizations Immunization Administration Dates Next Due Tdap vaccine, age 7 year and older (BOOSTRIX, AD ACEL) 06/02/2024,05/08/2014 Family History Medical History Relation Name Comments CABG Mother Relation Name Status Comments Mother Social History Tobacco Use Types Packs/Day Years Used Date Smoking Tobacco: Former Cigarettes S tarted: 1986 Smokeless Tobacco: Never Tobacco Cessation:Counseling Given: Not Answered Alcohol Use Standard Drinks/Week Comments Never 0 [...] No / Unsure 10/28/2024 1:35 PM EDT Last Filed Vital Signs Vital Sign Reading [...] Mass Index 28.21 10/28/2024 1:41 PM EDT Plan of Treatment Upcoming Encounters Date Type Department Care Team (Late st Contact Info) Description 10/31/2025 10:00 AM EDT Office Visit [place] [address] [facility] [place] [phone] Silvana Soares MD [address] [facility] [address] [place] [address] Health Maintenance Due Date Last Done Comments CT Colonography 1956 FIT-DNA (Cologuard) 1955 FIT 1956 Sigmoidoscopy 1955 Yearly Adult Physical 1955 Diabetes Screening 1974 Hepatitis C Screening 1974 Pneumococcal Vaccine (1 of 2 - PCV) 08/13/1975 Zoster Vaccines (1 of 2) 2006 RSV High Risk: (Elderly (60+) or Population) (1 - Risk 60-74 years 1-dose series) 2016 COVID-19 Vaccine (2 - 2023- season) 2024 08/06/2021 Influenza Vaccine (Season Ended) 2025 Mammogram 09/05/2025 09/05/2024, 08/11, 08/09/2023, Additional history exists Colonoscopy 08/17/2027 08/16/2017 Colorectal Cancer Screening 08/17/2027 Lipid Panel 10/24/2029 10/24/2024, 10/02/2023 DTaP/Tdap/Td Vaccines (3 - Td or Tdap) 06/02/2034 06/02/2024, 05/08/2014 Bone Density Scan Completed 01/11/2022 HIB Vaccines Aged Out No longer eligi ble based on patient's age to complete this topic HPV Vaccines Aged Out No longer eligi ble based on patient's age to complete this topic Hepatitis A Vaccines Aged Out No long er eligible based on patient's age to complete this topic Hepatitis B Vaccines Aged Out No long er eligible based on patient's age to complete this topic IPV Vaccines Aged Out No longer eligi ble based on patient's age to complete this topic Meningococcal Vaccine Aged Out No babs nirmala eligible based on patient's age to complete this topic Rotavirus Vaccines Aged Out No longer eligible based on patient's age to complete this topic Insurance MEDICARE PART A AND B [facility] MEDICARE PART [place] [address] [place] [address] Care Teams Inventory Auditor Relationship Specialty Start Date End Date Cindy Lofton MD [address] [place] [address] [facility] - General 03/28/22
--- OUTSIDE RECORDS SUMMARY | 2024-11-07 17:45 | XMS_ITS | Encounter Summary ---
Author Organization [facility] Address [address] [place] [address] Care Team Providers Care Demo Specialist Name Role Phone Cindy Lofton MD Primary Care Provider [phone] Kayleen Busby INSEAMER Unavailable [phone] Encounter Details Date Type Department Care Team (Late st Contact Info) Description 10/25/2024 Results Follow-Up [facility] [address] [place] [address] Latha Pino NP [address] [place], [place] [id number] Social History Tobacco Use Types Packs/Day Years [...] encounter Miscellaneous Notes * Telephone Encounter - Andreea Grande MA - 10/25/2024 1:11 PM EDT Message given * Telephone Encounter - Andreea Grande MA - 10/25/2024 1:11 PM EDT ----- Message from Latha Pino sent at 10/25/2024 1:10 PM EDT ----- stable ----- Message ----- From: [place], [facility] Results In Sent: 10/25/2024 5:57 AM EDT To: Kayleen Busby NP documented in this encounter Plan of Treatment Not on file documented as of this encounter Visit Diagnoses Not on filedocumented in this encounter Additional Health Concerns Assessment Noted Time PHQ-9 Depression Total Score: 0 10/25/19 8:00 AM EDT documented as of this encounter Care Teams Demo Specialist Relationship Specialty Start Date End Date Cindy Lofton MD [address] [facility] [place] [address] PCP - General Family Medicine 10/18/22 Kayleen Busby NP [address] [facility] [place] [address] PCP - ACO Reach 07/19/24 documented as of this encounter
--- OUTSIDE RECORDS SUMMARY | 2024-11-07 17:45 | XMS_ITS | Clinical Summary ---
Author Organization [employer] Address [id number] [address] [place] [address] Care Team Providers Care Business Operations Analyst Name Role Phone Cindy Lofton MD Primary Care Provider Family History Medical History Relation Name Comments Breast cancer Neg Hx Social History Tobacco Use Types Packs/Day Years Used Date Smoking Tobacco: Never Assessed Childcare Answer Date Recorded Childcare Unknown 11/21/2018 Employment Answer Date Recorded Employment Unknown 11/21/2018 Purpose - Life Answer Date Recorded Purpose and direction in life Unknown Comments Unknown Sex and Gender Information Value Date Recorded Sex Assigned at Not on file Legal Sex Female 11:45 AM EDT Gender Identity Not on file Sexual Orientation Not on file Last Filed Vital Signs Vital Sign Reading Time Taken Comments Blood Pressure - - Pulse - - Temperature - - Respiratory Rate - - Oxygen Saturation - - Inhaled Oxygen Concentration - - Weight 83.9 kg (185 lb) 06/26/2018 2:36 PM EST Height 167.6 cm (5' 6 ) 06/26/2018 2:36 PM EST Body Mass Index 29.86 06/26/2018 2:36 PM EST Plan of Treatment Health Maintenance Due Date Last Done Comments Depression Screening 1968 Tobacco Screening 1968 Adult BMI Screening 1974 DTaP,Tdap and Td Vaccines (1 - Tdap) 08/13/1975 Zoster (Shingles) Vaccine (1 of 2) 2006 Fall Risk Screening 2021 COVID-19 Vaccine (2023-2 5 season) 2024 08/06/2021, 02/05/2021, 01/15/2021 Influenza Vaccine 02/10/2025 Medical Devices Not on file Insurance MEDICARE [employer] [facility] Care Teams Business Operations Analyst Relationship Specialty Start Date End Date Cindy Lofton MD [address] [place] [address] PCP - General Family Medicine 05/17/17
--- OUTSIDE RECORDS SUMMARY | 2024-11-07 17:51 | XMS_ITS | CCD ---
Author Organization [facility] Care Team Providers Care Office Machine Service Supervisor Name Role Phone Cindy Patel Unavailable Unavailable Unavailable Dr. Cindy Patel Primary Care Unavail grisel Soares, Dr. Pina Attending Unavailable Rodger, Dr. Pina Referring Unavailable Jackelin Handy Attending Unavailable Jackelin Handy Referring Unavailable Rolly, Dr. Cindy Pereira Primary Care Unavail able Rolly, Dr. Cindy Pereira Primary Care Unavail grisel Soares, Dr. Pina Attending Unavailable Rodger, Dr. Pina Referring Unavailable Rolly, Dr. Cindy Pereira Primary Care Unavail grisel Soares, Dr. Pina Attending Unavailable Rodger, Dr. Pina Referring Unavailable Cindy Patel MD Primary Care Provider Cindy Patel MD Primary Care Provider Kehinde ABDI, Ced Walters Unavailable CED BUSBY Attending Dahliaab BIBI Castaneda Attending Unavailab BIBI Castaneda Referring Unavailab BIBI Castaneda Attending Unavailab BIBI Castaneda Attending Unavailab KEVIN Almazan Referring Unavailable Cindy Patel MD Primary Care Provider 1( [phone] TANISHA SOARES Attending Unavailable TANISHA SOARES Referring Unavailable CINDY PATEL Primary Care Unavailable Medications Current Medications Medication Drug Class(es) Dates Sig (Normalized) Sig (Original) 8 hr acetaminophen 650 mg extended release oral tablet (13 sources) Start: 01-11-2022 acetaminophen (Tylenol 8 Hour) 650 MG ER tablet every 8 (eight) hours 01/11/2022 Active amoxicillin 500 mg / clavulanate 125 mg oral tablet (3 sources) Penicillin-class Antibacterial Start: 03-12-2024 End: 03-22-2024 take 1 tablet by mouth in the morning amoxicillin-clavula priscila (Augmentin) 500-125 MG tablet Indications: Acute non-recurrent pansinusitis Take 1 tablet (500 mg) by mouth in the morning and 1 tablet (500 mg) before bedtime. Do all this for 10 days. 20 tablet 03/12/2024 03/22/2024 Active atorvastatin 10 mg oral tablet (20 sources) HMG-CoA Reductase Inhibitor Start: 07-03-2023 End: 10-28-2025 take 1 tablet by mouth once daily atorvastatin (Lipitor) 10 mg tablet Indications: Mixed hyperlipidemia Take 1 tablet (10 mg) by mouth once daily. 90 tablet 3 10/28/2024 10/28/2025 Active Start: 03-28-2022 take 1 tablet by brandon th once daily Atorvastatin Calcium 10 MG Oral Tablet take 1 tablet by mouth once daily Quantity: 90 Refills: 1 Ordered: 19-Sep-2022 Tanisha Soares MD Start : 28-Mar-2022 Active cyclobenzaprine hydrochloride 10 mg oral tablet (9 sources) Muscle Relaxant take 1 tablet by mouth three times daily as needed cyclobenzaprine (Flexeril) 10 mg tablet Take 1 tablet (10 mg) by mouth 3 times a day as needed. Active losartan potassium 100 mg oral tablet (20 sources) Angiotensin 2 Receptor Dominique Start: 10-09-19 End: 10-29-19 take 1 tablet by mouth once daily losartan (Cozaar) 100 mg tablet Indications: Primary hypertension Take 1 tablet (100 mg) by mouth once daily. 90 tablet 3 10/28/2024 10/28/2025 Active Start: 09-19-2022 End: 10-09-2023 take 1 tablet by mouth once daily losartan (Cozaar) 50 mg tablet Indications: Primary hypertension Take 1 tablet by mouth once daily 90 tablet 09/11/2023 10/09/2023 Discontinued (Dose adjustment) Multiple Vitamin (multivitamin) capsule (13 sources) take 1 capsule by mouth once daily Multiple Vitamin (multivitamin) capsule Take 1 capsule by mouth Daily Active multivitamin tablet (2 sources) take 1 tablet by mouth once daily multivitamin tablet Take 1 tablet by mouth once daily. Active tiZANidine 2 mg oral tablet (9 sources) Central alpha-2 Adrenergic Agonist Start: 05-07-20 take 1 tablet by mouth once daily as needed for muscle spasms tiZANidine (Zanaflex) 2 MG tablet Indications: Fibromyalgia Take 1 tablet (2 mg) by mouth Daily as needed for muscle spasms 30 tablet 05/07/2024 Active Problems Active Problems Problem Classification Problem Date Documented Da te Episodic/Chronic Administrative/social admission (3 sources) Follow-up status; Translations: [Other specified counseling] Episodic Asthma (15 sources) Asthma without status asthmaticus; Translations: [Unspecified asthma, uncomplicated] Onset: 03-15-2011 08-03-2023 Chronic Conduction disorders (20 sources) Complete right bundle branch block; Translations: [Right bundle branch block] Onset: 06-07-2023 10-09-2023 Chronic Disorders of lipid metabolism (20 sources) Mixed hyperlipidemia; Translations: [Mixed hyperlipidemia] Onset: 06-07-2023 10-09-2023 Chronic Essential hypertension (20 sources) Essential hypertension; Translations: [Unspecified essential hypertension] Onset: 06-07-2023 10-09-2023 Chronic Headache; including migraine (2 sources) Acute headache; Translations: [Acute intractable headache, unspecified headache type] 06-17-2024 Episodic Nutritional deficiencies (15 sources) Vitamin D deficiency; Translations: [Vitamin D deficiency, unspecified] Onset: 08-03-2023 08-03-2023 Chronic Other injuries and conditions due to external causes (6 sources) Injury of head; Translations: [Unspecified injury of head, initial encounter] 06-10-2024 Episodic Other nutritional; endocrine; and metabolic disorders (7 sources) Obesity; Translations: [Obesity, unspecified] Chronic Other nutritional; endocrine; and metabolic disorders (13 sources) Body mass index 30+ - obesity; Translations: [Body mass index (BMI) 31.0-31.9, adult] Onset: 10-09-2023 10-09-2023 Chronic Other nutritional; endocrine; and metabolic disorders (2 sources) Overweight in adulthood with body mass index of 25 or more but less than 30; Translations: [Body mass index (BMI) 28.0-28.9, adult] Onset: 10-28-2024 10-28-2024 Episodic Other nutritional; endocrine; and metabolic disorders (2 sources) Body mass index (BMI) 28.0-28.9, adult; Translations: [Body mass index (BMI) 28.0-28.9, adult] Onset: 10-28-2024 Episodic Other upper respiratory infections (2 sources) Acute pansinusitis; Translations: [Acute pansinusitis, unspecified] 03-12-2024 Episodic Screening and history of mental health and substance abuse codes (20 sources) Ex-smoker; Translations: [Personal history of tobacco use] Onset: 10-09-2023 10-09-2023 Episodic Past or Other Problems Problem Classification Problem Date Documented Date Episodic/Chronic Mood disorders (13 sources) Mood disorders Onset: 10-02-2023 Resolved: 10-24-2024 10-02-2023 Other aftercare (13 sources) Treatment changed; Translations: [Long-term (current) use of other medications] Onset: 10-09-2023 Resolved: 10-24-2024 10-09-2023 Episodic Other circulatory disease (20 sources) Elevated blood pressure; Translations: [Elevated blood pressure reading without diagnosis of hypertension] Onset: 06-07-2023 Resolved: 10-02-2023 06-07-2023 Episodic Other connective tissue disease (20 sources) Fibromyalgia; Translations: [Myalgia and myositis, unspecified] Onset: 03-15-2011 10-09-2023 Episodic Other screening for suspected conditions (not mental disorders or infectious disease) (20 sources) Electrocardiogram abnormal; Translations: [Nonspecific abnormal electrocardiogram [ECG] [EKG]] Onset: 05-17-2022 Resolved: 10-02-2023 07-27-2023 Episodic Unclassified (7 sources) Patient status finding; Translations: [Patient new to provider] Unclassified (2 sources) Onset: 10-09-2023 Resolved: 10-28-2024 10-09-2023 Results Test Name Value Interpretation Reference Range Facility BI MAMMOGRAM SCREENING TOMOS YNTHESIS BILATERALon 09-05-2024 BI MAMMOGRAM SCREENING TOMOSYNTHESIS BILATERAL This is a summary report. The complete report is available in the patient's medical record. If you cannot access the medical record, please contact the sending organization for a detailed fax or copy. Examination: BI MAMMOGRAM SCREENING TOMOSYNTHESIS BILATERAL Clinical [...] on the left which appears grossly unremarkable. IMPRESSION: Impression: No specific evidence of malignancy seen in either breast. BIRADS 2 - Benign Findings DENSITY: There are scattered areas of fibroglandular density. FOLLOW-UP: Routine Screening Mammogram ELECTRONICALLY SIGNED BY: Faisal Wright M.D. Normal Not Available CT HEAD WO IV CONTRASTon CT HEAD WO IV CONTRAST CT HEAD WO IV CONTRAST INDICATION: Post fall and hit head, had bleeding and bump, no current complaints COMPARISON: None. TECHNIQUE: Axial images were obtained through the brain without the use of intravenous contrast. Coronal and Sagittal reformations were generated. FINDINGS: CEREBRUM: Normal morphology. No hemorrhage or mass effect. There are very mild patchy areas of hypoattenuation in the subcortical cerebral white matter. CEREBELLUM: Normal. BRAINSTEM: Normal. VENTRICLES AND EXTRA-AXIAL SPACES: The ventricles are normal in size and symmetric. There are no extra-axial fluid collections. SKULL/SCALP: The calvarium is grossly intact. There is a mild amount of scalp soft tissue swelling at the vertex. No visible scalp hematoma. PARANASAL SINUSES AND MASTOID AIR CELLS: Normal. IMPRESSION: 1. No intracranial hemorrhage or mass effect. 2. Mild scalp thickening or swelling at the vertex but no appreciable hematoma. 3. Mild chronic microvascular ischemic changes in the cerebral white matter suggested. Dictated on: 06/14/2024 9:41 AM This report has been electronically signed and approved by the interpreting Radiologist. Normal Not Available Laboratory - Microbiology an d Antimicrobial susceptibilityon 03-12-2024 SARS-CoV-2 (COVID-19) RNA FARZANA+probe Ql (Unsp spec) Negative [facility] No Panel Informationon 03-12 FLU A Negative [facility] FLU B Negative [facility] Office Visit (Cardiology)on 12-21-2022 Follow-up visit Diagnoses/Problems Assessed Primary hypertension (401.9) (I10) Class 1 obesity with body mass index (BMI) of 33.0 to 33.9 in adult (278.00,V85.33) (E66.9,Z68.33) Orders Class 1 obesity with body mass index (BMI) of 33.0 to 33.9 in adult Healthy Weight Tips; Status:Complete; Done: [id number] Patient Instructions Please bring all medicines, vitamins, and herbal supplements with you when you come to the office. Prescriptions will not be filled unless you are compliant with your follow up appointments or have a follow up appointment scheduled as per instruction of your physician. Refills should be requested at the time of your visit. PLAN: Through informed decision making process incorporating patients unique circumstances, the following treatment plan will be initiated: 1. Prescription drug management of cardiovascular medication for efficacy, adherence to treatment, side effect assessment and polypharmacy. Current treatment clinically warranted and to continue without modifications. 2. Return for follow-up; in the interim, contact the office if new symptoms arise. Dr. Soares as scheduled Chief Complaint Blood pressure f/u: 'doing ok' BEVERLY BONILLA is being seen for hypertension. Patient presents the office amatory with steady gait. Last evaluated in clinic Dr. Soares September 2022. At that time, losartan added to medical regimen. Repeat potassium 3.9, creatinine 0.6. Patient been compliant with changes, denies any type of side effects. She continues to follow her blood pressure routinely at home. Systolic blood pressure recordings reviewed and consistently less than 130. She is utilizing an arm cuff, it has been good calibrated. Since last office visit, she has started a walking program and is starting to become more conditioned. She is making lifestyle changes to lose weight and has been encouraged to continue. Otherwise, patient denies any change in overall cardiovascular status since last evaluation in clinic. Encouraged primary lifestyle modifications including consumption of healthy diet, reduced sodium intake, moderation in alcohol intake, weight loss and increased physical activity. History of Present Illness The patient presents for follow-up of essential hypertension. The patient states she has been doing well with her blood pressure control since the last visit. She has no comorbid illnesses. Symptoms: denies impaired vision, denies dyspnea, denies chest pain, denies intermittent leg claudication and denies lower extremity edema. Associated symptoms include no headache. Home monitoring: The patient checks her blood pressure regularly. Blood pressure control has been good. Medications: the patient is adherent with her medication regimen. She denies medication side effects. Surgical History Problems Denied: History of Colonoscopy History of Tubal ligation Current Meds Medication NameInstruction Atorvastatin Calcium 10 MG Oral Tablettake 1 tablet by mouth once daily Cyclobenzaprine HCl - 10 MG Oral TabletTAKE 1 TABLET 3 TIMES DAILY NEEDED. Losartan Potassium 50 MG Oral TabletTake 1 tablet daily Allergies Medication No Known Drug Allergies Recorded By: Woody Brenner; 03/28/2022 11:26:44 AM Social History Problems Daily caffeine consumption, 1 serving a day Former smoker (V15.82) (Z87.891) No alcohol use No illicit drug use Review of Systems Constitutional: not feeling tired. Cardiovascular: no chest pain, no palpitations and no lower extremity edema. Respiratory: no shortness of breath during exertion, no orthopnea and no PND. Vitals Vital Signs Recorded: [id number] 11:26AM Heart Rate62, R Radial Owfnuoao138, RUE, Sitting Izxmkdmfk89, RUE, Sitting Height5 ft 4 in Sptawb376 lb BMI Nxrhwnoyri71.3 kg/m2 BSA Calculated1.93 Tobacco Useb) No Physical Exam Constitutional: alert and in no acute distress. Neck: neck is supple, symmetric, trachea midline, no masses . Pulmonary: no increased work of breathing or signs of respiratory distress and lungs clear to auscultation. Cardiovascular: JVP was normal, regular rhythm, normal S1 and S2, no murmurs and no edema . Abdomen: abdomen non-tender, no masses . Skin: skin warm and dry, normal skin turgor . Psychiatric oriented to person, place and time and normal mood and affect . Signatures Jackelin Handy MSN, APPLICATION SUPPORT ENGINEER-TOE PUNCHER, PMHNP-BC [facility] Please excuse any errors in grammar or translation related to this dictation. Voice recognition software was utilized to prepare this document. Electronically signed by : KRISTIAN Medrano; Dec 22 2022 4:03PM EST (Author) Normal [facility] Tobacco Screening.on 023 Tobacco use status [facility] b) No -[facility] DO Work Phone: Office Visit (Cardiology)on 09-19-2022 Follow-up visit Diagnoses/Problems Assessed Abnormal EKG (794.31) (R94.31) Former smoker (V15.82) (Z87.891) Encounter to discuss test results (V65.49) (Z71.2) Class 1 obesity with body mass index (BMI) of 33.0 to 33.9 in adult (278.00,V85.33) (E66.9,Z68.33) Primary hypertension (401.9) (I10) Orders Class 1 obesity with body mass index (BMI) of 33.0 to 33.9 in adult Healthy Weight Tips; Status:Complete - Retrospective Authorization; Done: [id number] Some eating tips that can help you lose weight.; Status:Complete - Retrospective Authorization; Done: [id number] Elevated blood pressure reading, Primary hypertension Start: Losartan Potassium 50 MG Oral Tablet; Take 1 tablet daily Health Maintenance Basic Metabolic Panel; Status:Active - Retrospective Authorization; Requested for:[id number]; Health Maintenance, Mixed hyperlipidemia, Primary hypertension Basic Metabolic Panel; Status:Active - Retrospective Authorization; Requested for:[id number]; Mixed hyperlipidemia Renew: Atorvastatin Calcium 10 MG Oral Tablet; take 1 tablet by mouth once daily SocHx: Former smoker Tobacco Use Screening; Status:Complete; Done: [id number] Patient Instructions Please bring all medicines, vitamins, and herbal supplements with you when you come to the office. Prescriptions will not be filled unless you are compliant with your follow up appointments or have a follow up appointment scheduled as per instruction of your physician. Refills should be requested at the time of your visit. Blood Pressure Follow Up In 3 months with Jackelin Hernandez NP if bp okay per Dr. Tanisha Soares MD Patient can come back to see Dr. Tanisha Soares MD September 2023 patient to bring bp machine to appointment with Jackelin Hernandez NP Chief Complaint BEVERLY BONILLA is being seen for ECHO, GXT. History of Present Illness Patient was most recently seen in March 2022. In May she went on to have a stress test and echocardiogram. She presents for follow-up. Interval review of systems is negative for chest discomfort pressure tightness heaviness palpitations lightheadedness orthopnea paroxysmal nocturnal dyspnea dependent edema or claudication TIA or CVA type symptoms or bleeding diathesis Test results were reviewed with her. In view of the elevation in blood pressure, we will initiate losartan. She has lost 10 pounds since her last visit with us. She is following a heart healthy lifestyle. Assessment: 1. This is a postmenopausal female with an incomplete right bundle branch block and exertional shortness of breath, and diffuse myalgia, she carries a diagnosis of fibromyalgia. She quit smoking in 1986 after smoking for about 10 years. 2. Patient exercised to a workload of 7 METS [...] mild tricuspid regurgitation, normal IVC, RVSP millimeters mercury 4. Hypertension Recommendations: 1. Continue efforts at weight loss 2. Start losartan 3. Basic metabolic profile 7 to 10 days after initiation of losartan 4. Follow-up as scheduled 5. Patient understands that coronary artery disease is a dynamic process and that if symptoms change she needs to seek medical attention. 6. Potential side effects of losartan were discussed. Recommendations: Current Meds Medication NameInstruction Atorvastatin Calcium 10 MG Oral Tablettake 1 tablet by mouth once daily Cyclobenzaprine HCl - 10 MG Oral TabletTAKE 1 TABLET 3 TIMES DAILY NEEDED. Allergies Medication No Known Drug Allergies Recorded By: Woody Brenner; 03/28/2022 11:26:44 AM Social History Problems Daily caffeine consumption, 1 serving a day Former smoker (V15.82) (Z87.891) No alcohol use No illicit drug use Review of Systems Constitutional: Denies: fever, chills, malaise Eye: Denies: discharge from eyes, eye pain, changes in vision HEENT: Denies: headache, nasal discharge, sore throat, ear pain Gastrointestinal: Denies: nausea, vomiting, diarrhea, abdominal pain Integument: Denies: rash, itching, new skin lesions Neurologic: Denies: muscular weakness, tingling, numbness, tremors, loss of balance Endocrine: Denies: polyuria, polydipsia, cold intolerance, heat intolerance Psychiatric: Denies: anxiety, depression, suicidal ideation Heme -lymph: Denies: easy bruising, petechia, lymph node enlargement, or tenderness Remaining ROS is negative, noncontributory, or as previously mentioned Vitals Vital Signs Recorded: [id number] 10:42AM Heart Rate64, R Radial Kusuzvdv877, RUE, Sitting Slspwrnda57, RUE, Sitting Height5 ft 4 in Mhxcci017 lb BMI Sgojhuqdrj78. (more content not included)... Normal [facility] Tobacco Screening.on 023 Adult depression screening assessment No [facility] 250 DO Work Phone: Fall risk assessment a) No falls within the last year [facility] 250 DO Work Phone: Tobacco use status [facility] b) No [facility] 250 DO Work Phone: Cardiac Stress Teston 2021 [facility] [address] [place] [address], [place] [address] Exercise Stress Test Patient Name: BEVERLY BONILLA Ordering Physician: [id number] Tanisha Soares MD Study Date: 05/17/2022 Reading Physician: [id number] Denise Knox MD, [facility] MRN/PID: [id number] Supervising Physician: [id number] Praveen Pardo DO Accession/Order#: [id number] Referring Physician: TANISHA SOARES Date of : 1955 PCP: Cindy Patel Gender: F Fellow: Height: 162.56 cm Nurse: Maurice Ivey RN Weight: 90.72 kg Refrigeration Manager: NA BSA: 1.96 m2 Technologist: BMI: 34.33 kg/m2 Additional Staff: Age: 66 years cc report to: Patient Location: report to: [id number] Tanisha Soares MD Study Type: Cardiac Stress Test Diagnosis/ICD: R94.31-Abnormal electrocardiogram [ECG] [EKG] Indication: Abnormal EKG Procedure/CPT: Stress Test Interpretation-[id number]; Stress Test Supervision-[id number] Falls Risk: Low: Patient has low risk for sustaining a fall; environmental safety interventions in place. Study Details: Correct procedure and correct patient verified verbally. Patient History: Allergies: None. Patient Performance: The patient exercised to stage II on a Rei protocol for 5 minutes and 1 seconds, achieving 7.00 METS. The peak heart rate achieved was 169 bpm, which was 110 % of the age predicted target heart rate of 154 bpm. The resting blood pressure was 142/88 mmHg with a heart rate of 75 bpm. The standing blood pressure was 144/86 mmHg with a heart rate of 81 bpm. The patient's functional capacity was average. The patient developed leg fatigue during the stress exam. The symptoms resolved with rest. The blood pressure response was normal. The test was terminated due to: leg fatigue and musculoskeletal weakness. Baseline ECG: Resting ECG showed normal sinus rhythm with incomplete right bundle branch block. Stress Stage Data: + +--- +------+-------+ HR Sys BP Goetz BP + +--- +------+-------+ Baseline Resting 75 142 88 + +--- +------+-------+ Baseline Standing 81 144 86 + +--- +------+-------+ Stage I 160 168 82 + +--- +------+-------+ Stage II 169 174 80 + +--- +------+-------+ Recovery ECG: The heart rate recovery was normal. + +---+---- --+-------+ HR Sys BP Goetz BP + +---+---- --+-------+ Recovery I 166 168 84 + +---+---- --+-------+ Recovery II 153 166 78 + +---+---- --+-------+ Recovery III 117 154 88 + +---+---- --+-------+ Recovery IV 110 140 88 + +---+---- --+-------+ Summary: 1. 1_normal exercise tolerance test after completing 5 minutes on a Rei protocol achieving 109% of predicted maximal heart rate and workload of 7 METS. 2_no ischemic EKG changes, chest pain or cardiac arrhythmias induced by exercise with appropriate hemodynamic response to exercise and normal heart rate recovery. Patient achieved Wood treadmill score of 5+. The duration of exercise though for the patient's age is somewhat below normal probably suggesting deconditioning. 2. The adequate level of stress was achieved. [id number] Denise Knox MD, [facility] Electronically signed on 05/18/2022 at 3:42:31 PM Final Normal [facility] Cardiac Stress Test Please click on the link to view the study images [facility] Work Phone: Cardiac Stress Test [facility] [place] [address] DO Work Phone: Echocardiogramon 05-17-[address], [place] [address] TRANSTHORACIC ECHOCARDIOGRAM REPORT Patient Name: BEVERLY Mcgee Physician: [id number] Denise Knox MD, [facility] Study Date: 05/17/2022 Referring TANISHA SOARES Physician: MRN/PID: [id number] PCP: Cindy Patel Accession/Order#: [id number] [facility] Location: Date of : 1955 Fellow: Gender: F Nurse: Admit Date: Refrigeration Manager: Georgiana Altamirano [facility], T Height: 162.56 cm CC Report to: Weight: 90.72 kg Study Type: Echocardiogram BSA: 1.96 m2 Diagnosis/ICD: R94.31-Abnormal electrocardiogram [ECG] [EKG] Indication: Abnormal EKG-IRBBB, Hyperlipidemia, 2/6 Systolic Murmur, Former Smoker, Obesity, Fibromyalgia, Family History of CAD Procedure/CPT: Echo Complete w Full Doppler-[id number] Study Detail: The following Echo studies were performed: 2D, M-Mode, Doppler and color flow. PHYSICIAN INTERPRETATION: Left Ventricle: Left ventricular systolic function is normal, with an estimated ejection fraction of 70%. There are no regional wall motion abnormalities. The left ventricular cavity size is normal. Spectral Doppler shows an impaired relaxation pattern of left ventricular diastolic filling. Left Atrium: The left atrium is normal in size. Right Ventricle: The right ventricle is normal in size. There is normal right ventricular global systolic function. Right Atrium: The right atrium is normal in size. Aortic Valve: The aortic valve appears structurally normal. There is trivial aortic valve regurgitation. The peak instantaneous gradient of the aortic valve is 9.0 mmHg. The mean gradient of the aortic valve is 5.0 mmHg. Mitral Valve: The mitral valve is normal in structure. There is trace mitral valve regurgitation. Tricuspid Valve: The tricuspid valve is structurally normal. There is mild tricuspid regurgitation. Pulmonic Valve: The pulmonic valve is structurally normal. There is no indication of pulmonic valve regurgitation. Pericardium: There is no pericardial effusion noted. Aorta: The aortic root is normal. Systemic Veins: The inferior vena cava appears to be of normal size. CONCLUSIONS: 1. Left ventricular systolic function is normal with a 70% estimated ejection fraction. 2. Spectral Doppler shows an impaired relaxation pattern of left ventricular diastolic filling. QUANTITATIVE DATA SUMMARY: 2D MEASUREMENTS: Normal Ranges: Ao Root d: 2.30 cm (2.0-3.7cm) LAs: 3.60 cm (2.7-4.0cm) RVIDd: 4.10 cm (0.9-3.6cm) IVSd: 1.00 cm (0.6-1.1cm) LVPWd: 0.80 cm (0.6-1.1cm) LVIDd: 4.00 cm (3.9-5.9cm) LVIDs: 2.50 cm LV Mass Index: 56.1 g/m2 LV % FS 37.5 % LV SYSTOLIC FUNCTION BY 2D PLANIMETRY (MOD): Normal Ranges: EF-A4C View: 75.0 % (>=55%) LV DIASTOLIC FUNCTION: Normal Ranges: MV Peak E: 0.69 m/s (0.7-1.2 m/s) MV Peak A: 1.12 m/s (0.42-0.7 m/s) E/A Ratio: 0.61 (1.0-2.2) MV lateral e' 0.08 m/s MV medial e' 0.06 m/s E/e' Ratio: 8.70 (<8.0) MITRAL VALVE: Normal Ranges: MV Vmax: 1.36 m/s (<=1.3m/s) MV peak P.4 mmHg (<5mmHg) MV mean P.0 mmHg (<48mmHg) MITRAL INSUFFICIENCY: Normal Ranges: MR Vmax: 287.00 cm/s AORTIC VALVE: Normal Ranges: AoV Vmax: 1.50 m/s (<=1.7m/s) AoV Peak P.0 mmHg (<20mmHg) AoV Mean P.0 mmHg (1.7-11.5mmHg) LVOT Max Rodolfo: 0.96 m/s (<=1.1m/s) AoV VTI: 25.30 cm (18-25cm) LVOT VTI: 19.20 cm LVOT Diameter: 1.90 cm (1.8-2.4cm) AoV Area, VTI: 2.15 cm2 (2.5-5.5cm2) AoV Area,Vmax: 1.82 cm2 (2.5-4.5cm2) AoV Dimensionless Index: 0.76 AORTIC INSUFFICIENCY: AI Vmax: 3.72 m/s AI Half-time: 297 msec AI Decel Rate: 367.00 cm/s2 TRICUSPID VALVE/RVSP: Normal Ranges: Peak TR Velocity: 2.60 m/s RV Syst Pressure: 30.0 mmHg (< 30mmHg) PULMONIC VALVE: Normal Ranges: PV Max Rodolfo: 0.9 m/s (0.6-0.9m/s) PV Max P.3 mmHg [id number] Denise Knox MD, FACC Electronically signed on 05/18/2022 at 3:21:12 PM Final Normal [facility] Echocardiography Please click on the link to view the study images [facility] Work Phone: Office Visit (Cardiology)on 03-28-2022 Follow-up visit Diagnoses/Problems Assessed Patient new to provider Mixed hyperlipidemia (272.2) (E78.2) Elevated blood pressure reading (796.2) (R03.0) Abnormal EKG (794.31) (R94.31) Class 1 obesity with body mass index (BMI) of 34.0 to 34.9 in adult (278.00,V85.34) (E66.9,Z68.34) Complete right bundle branch block (RBBB) (426.4) (I45.10) Fibromyalgia (729.1) (M79.7) Orders Abnormal EKG Cardiac Stress Test; Status:Hold For - Scheduling,Retrospecti ve By Protocol Authorization; Requested for:[id number]; Echocardiogram; Status:Hold For - Scheduling,Retrospecti ve By Protocol Authorization; Requested for:28Mar2022; IO EKG Electrocardiogram- 12 Lead; Status:Complete; Done: [id number] Class 1 obesity with body mass index (BMI) of 34.0 to 34.9 in adult Healthy Weight Tips; Status:Complete - Retrospective Authorization; Done: [id number] Some eating tips that can help you lose weight.; Status:Complete - Retrospective Authorization; Done: [id number] SocHx: Former smoker Tobacco Use Screening; Status:Complete; Done: [id number] Patient Instructions Please bring all medicines, vitamins, and herbal supplements with you when you come to the office. Prescriptions will not be filled unless you are compliant with your follow up appointments or have a follow up appointment scheduled as per instruction of your physician. Refills should be requested at the time of your visit. Follow up after testing The provider reviewed the following test(s) and result(s) with the patient: ECG and laboratory tests Chief Complaint BEVERLY BONILLA is being seen for a consultation for an abnormal ECG. History of Present Illness 66-year-old female is accompanied by her to the office, she is new to this provider, and is being seen regarding abnormalities on EKG showing right bundle branch block. Primary MD is Cindy Jones. I reviewed her EKG and it shows normal sinus rhythm left atrial abnormality and incomplete right bundle branch block. Patient's blood pressure is elevated, we repeated it, and still elevated. She is currently in the middle of a fibromyalgia flare. She says that her body hurts in multiple areas, achy all over. 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 She says that her fibromyalgia gets worse in the fall low-dose statin,. She has exertional shortness of breath no orthopnea or PND denies lower extremity edema does not complain of palpitations lightheadedness presyncope or syncope. Her BMI is above target Her laboratory data from January 2022 was reviewed, she has a low vitamin D level of 20 glucose is 80 BUN 19 creatinine 1.58 sodium 139 potassium 3.9 liver enzymes are normal GFR 100 TSH 1.41 total cholesterol 232 triglycerides 98 HDL 84 LDL 128 total cholesterol to HDL ratio 2.8 hemoglobin 12.7 hematocrit 39.8 platelets 363 An EKG from July 2021 showed sinus rhythm and incomplete right bundle branch block blood pressure during that EKG was elevated at 122/84 Patient quit smoking in 1986 after smoking for about 10 years Assessment: 1. This is a postmenopausal female with an incomplete right bundle branch block and exertional shortness of breath, and diffuse myalgia, she carries a diagnosis of fibromyalgia. She quit smoking in 1986 after smoking for about 10 years. Recommendations: It is prudent to proceed with additional testing, we will do an echocardiogram and a stress Myoview, and we will follow-up after that. I would like for her to keep track of her blood pressures, and it is very likely that she will need antihypertensive regimen. She has a home blood pressure monitoring device, she will bring in her blood pressure machine as well to make sure that the numbers tally. I thought about increasing her statin dose, but decided against it she is since she is complaining of a fibromyalgia flare. For that reason she has also requested that we do not proceed with her stress test for a few weeks. She understands that coronary disease is a dynamic process, we talked about the typical and atypical symptoms, she understands that she needs to seek prompt medical attention if those symptoms occur. Heart healthy lifestyle was also encouraged. I thank you for the opportunity to be involved in patient's care, please do not hesitate to call if further questions arise, Sincerely, Tanisha Soares MD [facility] Active Problems Problems Former smoker (V15.82) (Z87.891) Surgical History Problems Denied: History of Colonoscopy History of Tubal ligation Current Meds Medication NameInstruction Cyclobenzaprine HCl - 10 MG Oral TabletTAKE 1 TABLET 3 TIMES DAILY NEEDED. Lipitor 10 MG Oral TabletTAKE 1 TABLET AT BEDTIME. Allergies Medication No Known Drug Allergies Recorded By: Woody Brenner; 03/28/2022 11:26:44 AM Family History Mother Family history of S/P CABG x 2 Social History Problems Daily caffeine consumption, 1 serving a day Former smoker (V15.82) (Z87.891) No alcohol use No illicit drug use (more content not included)... Normal [place] Tobacco Screening.on 022 Adult depression screening assessment No [facility] [employer] [facility] [address] DO Work Phone: Fall risk assessment a) No falls within the last year [facility] [address] DO Work Phone: Tobacco use status [facility] b) No [facility] [address] DO Work Phone: Vital Signs Date Time Vital Sign Value Performing Clinician Faci lity 10-28-2024 13:41-0400 Body height 175.3 cm Tanisha Soares MD Work Phone: [facility] 10-28-2024 13:41-0400 Body mass index (BMI) [Ratio] 28.21 kg/m2 Tanisha Soares MD Work Phone: [facility] 10-28-2024 13:41-0400 Body weight 86.64 kg Tanisha Soares MD Work Phone: [facility] 10-28-2024 13:41-0400 Diastolic blood pressure 84 mm[Hg] Tanisha Soares MD Work Phone: [facility] 10-28-2024 13:41-0400 Heart rate 68 /min Tanisha Soares MD Work Phone: [facility] 10-28-2024 13:41-0400 Systolic blood pressure 134 mm[Hg] Tanisha Soares MD Work Phone: [facility] 10-24-2024 09:47-0400 Diastolic blood pressure 80 mm[Hg] Ced Harena [employer] Work Phone: [facility] 10-24-2024 09:47-0400 Systolic blood pressure 132 mm[Hg] Ced Jonesrena [employer] Work Phone: [facility] 10-24-2024 08:56-0400 Body mass index (BMI) [Ratio] 31.95 kg/m2 Ced Jonesrena [employer] Work Phone: [facility] 10-24-2024 08:56-0400 Body temperature 96.8 [degF] Ced Jonesrena [employer] Work Phone: [facility] 10-24-2024 08:56-0400 Body weight 87.09 kg Ced Jonesrena [employer] Work Phone: [facility] 10-24-2024 08:56-0400 Heart rate 76 /min Ced Jonesrena [employer] Work Phone: [facility] 10-24-2024 08:56-0400 SaO2% (BldA) [Mass fraction] 98 % Ced Crawfordnita [employer] Work Phone: [facility] 06-17-2024 11:34-0500 Body mass index (BMI) [Ratio] 33.78 kg/m2 Bibi Cernak [employer] Work Phone: [facility] 06-17-2024 11:34-0500 Body temperature 97.5 [degF] Bibi Simspatrick [employer] Work Phone: [facility] 06-17-2024 11:34-0500 Body weight 92.08 kg Bibi Simspatrick [employer] Work Phone: [facility] 06-17-2024 11:34-0500 Diastolic blood pressure 80 mm[Hg] Bibi Simspatrick [employer] Work Phone: [facility] 06-17-2024 11:34-0500 Systolic blood pressure 126 mm[Hg] Bibi Spangler [employer] Work Phone: [facility] 06-10-2024 14:33-0500 Body height 165.1 cm Bibi Spangler [employer] Work Phone: [facility] 06-10-2024 14:33-0500 Body mass index (BMI) [Ratio] 33.91 kg/m2 Bibi Spangler [employer] Work Phone: [facility] 06-10-2024 14:33-0500 Body weight 92.44 kg Bibi Spangler [employer] Work Phone: [facility] 06-10-2024 14:33-0500 Diastolic blood pressure 82 mm[Hg] Bibi Spangler [employer] Work Phone: [facility] 06-10-2024 14:33-0500 Heart rate 60 /min Bibi Simspatrick [employer] Work Phone: [facility] 06-10-2024 14:33-0500 SaO2% (BldA) [Mass fraction] 97 % Bibi Spangler [employer] Work Phone: [facility] 06-10-2024 14:33-0500 Systolic blood pressure 128 mm[Hg] Bibi Spangler [employer] Work Phone: [facility] 03-12-2024 11:29-0400 Body mass index (BMI) [Ratio] 32.95 kg/m2 Bibi Spangler [employer] Work Phone: [facility] 03-12-2024 11:29-0400 Body temperature 97.39 [degF] Bibi Spangler [employer] Work Phone: [facility] 03-12-2024 11:29-0400 Body weight 89.81 kg Bibi Spangler [employer] Work Phone: [facility] 03-12-2024 11:29-0400 Diastolic blood pressure 78 mm[Hg] Bibi Spangler [employer] Work Phone: [facility] 03-12-2024 11:29-0400 Systolic blood pressure 140 mm[Hg] Bibi Spangler [employer] Work Phone: [facility] 10-09-2023 12:01-0400 Diastolic blood pressure 80 mm[Hg] Tanisha Soares MD Work Phone: [facility] 10-09-2023 12:01-0400 Systolic blood pressure 142 mm[Hg] Tanisha Soares MD Work Phone: [facility] 10-09-2023 11:28-0400 Body height 167.6 cm Tanisha Soares MD Work Phone: [facility] 10-09-2023 11:28-0400 Body mass index (BMI) [Ratio] 31.93 kg/m2 Tanisha Soares MD Work Phone: [facility] 10-09-2023 11:28-0400 Body weight 89.72 kg Tanisha Soares MD Work Phone: [facility] 10-09-2023 11:28-0400 Heart rate 84 /min Tanisha Soares MD Work Phone: [facility] 12-21-2022 11:26-0400 Body height 162.56 cm Cindy Patel Work Phone: [facility] [address] DO Work Phone: 12-21-2022 11:26-0400 Body mass index (BMI) [Ratio] 33.3 kg/m2 Cindy Patel Work Phone: [facility] [address] DO Work Phone: 12-21-2022 11:26-0400 Body surface area Derived from formula 1.93 m2 Cindy Patel Work Phone: [facility] [address] DO Work Phone: 12-21-2022 11:26-0400 Body weight 88 kg Cindy Patel Work Phone: [facility] [address] DO Work Phone: 12-21-2022 11:26-0400 Diastolic blood pressure 78 mm[Hg] Cindy Patel Work Phone: [facility] [address] DO Work Phone: 12-21-2022 11:26-0400 Heart rate 62 /min Cindy Patel Work Phone: [facility] [address] DO Work Phone: 12-21-2022 11:26-0400 Systolic blood pressure 138 mm[Hg] Cindy Patel Work Phone: [facility] [address] DO Work Phone: 09-19-2022 10:42-0400 Body height 162.56 cm Cindy Patel Work Phone: [facility] [address] DO Work Phone: 09-19-2022 10:42-0400 Body mass index (BMI) [Ratio] 33.99 kg/m2 Cindy Patel Work Phone: [facility] [address] DO Work Phone: 09-19-2022 10:42-0400 Body surface area Derived from formula 1.95 m2 Cindy Patel Work Phone: [facility] [address] DO Work Phone: 09-19-2022 10:42-0400 Body weight 89.81 kg Cindy Patel Work Phone: [facility] [address] DO Work Phone: 09-19-2022 10:42-0400 Diastolic blood pressure 90 mm[Hg] Cindy Patel Work Phone: [facility] [address] DO Work Phone: 09-19-2022 10:42-0400 Heart rate 64 /min Cindy Patel Work Phone: [facility] [address] DO Work Phone: 09-19-2022 10:42-0400 Systolic blood pressure 140 mm[Hg] Cindy Patel Work Phone: [facility] [address] DO Work Phone: 03-28-2022 11:27-0400 Diastolic blood pressure 90 mm[Hg] Cindy Patel Work Phone: [facility] [address] DO Work Phone: 03-28-2022 11:27-0400 Systolic blood pressure 154 mm[Hg] Cindy Patel Work Phone: [facility] [address] DO Work Phone: 03-28-2022 11:26-0400 Body height 162.56 cm Cindy Patel Work Phone: [facility] [address] DO Work Phone: 03-28-2022 11:26-0400 Body mass index (BMI) [Ratio] 34.33 kg/m2 Cindy Patel Work Phone: [facility] [address] DO Work Phone: 03-28-2022 11:26-0400 Body surface area Derived from formula 1.96 m2 Cindy Patel Work Phone: [facility] [address] DO Work Phone: 03-28-2022 11:26-0400 Body weight 90.72 kg Cindy Patel Work Phone: [facility] [address] DO Work Phone: 03-28-2022 11:26-0400 Diastolic blood pressure 94 mm[Hg] Cindy Patel Work Phone: [facility] [address] DO Work Phone: 03-28-2022 11:26-0400 Heart rate 76 /min Cindy Patel Work Phone: [facility] [address] DO Work Phone: 03-28-2022 11:26-0400 Systolic blood pressure 162 mm[Hg] Cindy Patel Work Phone: [facility] [address] DO Work Phone: Encounters Encounter Date Encounter Type Care Provider Facility Start: 10-28-2024 End: 10-28-2024 Office outpatient visit 15 minutes Tanisha Soares MD [facility] Comment on above: Primary hypertension ; Mixed hyperlipidemia; Former smoker; Body mass index (BMI) of 28.0 to 28.9 in adult Start: 10-28-2024 End: 10-28-2024 ambulatory [facility] Ambulatory Start: 10-24-2024 End: 10-24-2024 [id number] flowsheet Ced Busby [employer] Work Phone: [facility] Start: 10-24-2024 End: 10-24-2024 Bamboo flowsheet Ced Busby [employer] Work Phone: [facility] Start: 10-24-2024 End: 10-24-2024 Patient encounter procedure Ced Busby [employer] Work Phone: [facility] Comment on above: Mild intermittent as thma without status asthmaticus without complication (CMS/HCC) (Primary Dx); Complete right bundle branch block (RBBB); Primary hypertension (CMS/HCC); Fibromyalgia; BMI 31.0-31.9,adult; Vitamin D deficiency; Mixed hyperlipidemia (CMS/HCC); Former smoker; Medicare annual wellness visit, subsequent Start: 10-24-2024 End: 10-24-2024 ambulatory CED BUSBY Not Available Start: 09-05-2024 End: 09-05-2024 ambulatory KEVIN CAMPOS Not Available Start: 06-17-2024 End: 06-17-2024 Bamboo flowsheet Bibi Romeo Spangler [employer] Work Phone: [facility] Start: 06-17-2024 End: 06-17-2024 Bamboo flowsheet Bibi A Spangler [employer] Work Phone: [facility] Start: 06-17-2024 End: 06-17-2024 Office outpatient visit 25 minutes Bibi Romeo OteroSpangler [employer] Work Phone: [facility] Comment on above: Injury of head, subs equent encounter (Primary Dx); Acute intractable headache, unspecified headache type; Primary hypertension (CMS/HCC) Start: 06-17-2024 End: 06-17-2024 ambulatory BIBI A SPANGLER Not Available Start: 06-14-2024 End: 06-14-2024 ambulatory BIBI A SPANGLER Not Available Start: 06-10-2024 End: 06-10-2024 Office outpatient visit 25 minutes Bibi Simspatrick [employer] Work Phone: [facility] Comment on above: Injury of head, init ial encounter (Primary Dx); Primary hypertension (CMS/HCC) Start: 06-10-2024 End: 06-10-2024 ambulatory BIBI A SPANGLER Not Available Start: 05-07-2024 End: 05-07-2024 Telephone encounter Cindy Patel MD Work Phone: [facility] Start: 03-13-2024 End: 03-13-2024 Telephone encounter Cindy Patel MD Work Phone: [facility] Start: 03-12-2024 End: 03-12-2024 Bamboo flowsheet Bibi Ramostrick [employer] Work Phone: [facility] Start: 03-12-2024 End: 03-12-2024 Bamboo flowsheet Bibi Spangler [employer] Work Phone: [facility] Start: 03-12-2024 End: 03-12-2024 Office outpatient visit 25 minutes Bibi Spangler [employer] Work Phone: [facility] Comment on above: Acute non-recurrent pansinusitis (Primary Dx); Primary hypertension (CMS/HCC) Start: 03-12-2024 End: 03-12-2024 ambulatory BIBI SPANGLER Not Available Start: 10-09-2023 End: 10-09-2023 Office outpatient visit 25 minutes Tanisha Soares MD Work Phone: [facility] Comment on above: Primary hypertension ; Mixed hyperlipidemia; Complete right bundle branch block (RBBB); Fibromyalgia; BMI 31.0-31.9,adult; Former smoker; Medication course changed Start: 07-27-2023 Telephone encounter Cindy melton MD Work Phone: [facility] Comment on above: Breast screening (Pr imary Dx); Encounter for screening mammogram for malignant neoplasm of breast Start: 12-21-2022 Patient encounter procedure Cindy Patel Work Phone: [facility] [employer] 250 DO Work Phone: Start: 12-21-2022 ambulatory Jackelin Handy Facility:[id number] Start: 09-19-2022 Office outpatient vi sit 25 minutes Cindy Patel Work Phone: [facility] 250 DO Work Phone: Start: 09-19-2022 Patient encounter procedure Cindy Patel Work Phone: [facility] 250 DO Work Phone: Start: 09-19-[address] Cindy Patel Facility: Start: 12-07-2022 Chart Update Cindy arce Work Phone: [facility] [address] DO Work Phone: Start: 05-17-[address] Cindy Patel Facility:[id number] Start: 03-28-2022 Office outpatient vi sit 25 minutes Cindy Patel Work Phone: [facility] [address] DO Work Phone: Start: 03-28-2022 Patient encounter procedure Cindy Patel Work Phone: [facility] [address] DO Work Phone: Start: 03-28-[address] Cindy Patel Facility:[id number] Procedures Date Procedure Procedure Detail Performing Clinician Start: 10-24-2024 Lipid 1996 panel - S chapito or Plasma Tanisha Soares MD Work Phone: Start: 09-05-2024 Mammography Ced Helga wade [employer] Work Phone: Start: 03-12-2024 STATUS COVID-19/FLU Chr isty A Spangler [employer] Work Phone: Start: 10-02-2023 Lipid 1996 panel - S chapito or Plasma Tanisha Soares MD Work Phone: Start: 08-09-2023 Mammography Tanisha christianson MD Work Phone: Start: 05-17-2022 Echocardiography Marcelo Patel Work Phone: Start: 01-11-2022 Mammography Cindy melton MD Work Phone: Start: 08-16-2017 Colonoscopy Cindy melton MD Work Phone: Ligation of fallopian tube J bahman Patel Work Phone: NEGATED: Highlighted row has not occurred! Colonoscopy Cindy Patel Work Phone: Plan of Treatment Date Care Activity Detail Author Start: 06-02-2034 DTaP/Tdap/Td Vaccine s (3 - Td or Tdap) DTaP/Tdap/Td Vaccines (3 - Td or Tdap) [facility] Start: 10-24-2029 Lipid panel Lipid Panel [facility] Start: 10-01-2028 Lipid panel Lipid Panel [facility] Start: 08-17-2027 Screening for malign ant neoplasm of colon [facility] Start: 10-31-2025 End: 10-31-2025 Patient encounter procedure 10/31/2025 10:00 AM EDT [facility] [address] [facility] [address] [place] [address] Tanisha Soares MD [address] [facility] [address] [place], [place] [id number] [facility] Start: 10-24-2025 Medicare Annual Wellness (AWV) Medicare Annual Wellness (AWV) [facility] Start: 09-05-2025 Screening for malign ant neoplasm of breast Mammogram [facility] Start: 04-30-2025 End: 10-28-2025 Comprehensive metabolic 2000 panel - Serum or Plasma Comprehensive Metabolic Panel Lab Routine Primary hypertension Expected: 04/30/2025 (Approximate), Expires: 10/28/2025 [facility] Service Area Work Phone: Comment on above: Expected: 04/30/2025 (Approximate), Expires: 10/28/2025 Start: 02-10-2025 Influenza vaccination Influenz a Vaccine (Season Ended) [facility] Start: 10-24-2024 End: 10-24-2025 25-hydroxyvitamin D3 [Mass/volume] in Serum or Plasma Vitamin D 25 hydroxy Lab Routine Vitamin D deficiency Expected: 10/24/2024 (Approximate), Expires: 10/24/2025 [facility] Comment on above: Expected: 10/24/2024 (Approximate), Expires: 10/24/2025 Start: 10-24-2024 End: 10-24-2025 Comprehensive metabolic 2000 panel - Serum or Plasma Comprehensive metabolic panel Lab Routine Primary hypertension (CMS/HCC) Expected: 10/24/2024 (Approximate), Expires: 10/24/2025 [facility] Comment on above: Expected: 10/24/2024 (Approximate), Expires: 10/24/2025 Start: 10-24-2024 End: 10-24-2025 Lipid 1996 panel - Serum or Plasma Lipid panel Lab Routine Mixed hyperlipidemia (CMS/HCC) Expected: 10/24/2024 (Approximate), Expires: 10/24/2025 [facility] Work Phone: Comment on above: Expected: 10/24/2024 (Approximate), Expires: 10/24/2025 Start: 10-24-2024 Screening for malign ant neoplasm of colon [facility] Start: 10-24-2024 End: 10-24-2024 Patient encounter procedure 10/24/2024 9:00 AM EDT Office Visit [facility] [address] [place] [id number] Ced Busby NP [address], [place] [id number] Arrived [facility] Comment on above: Arrived Start: 10-01-2024 Medicare Annual Wellness (AWV) Medicare Annual Wellness (AWV) [facility] Start: 09-30-2024 End: 09-30-2024 Patient encounter procedure 09/30/2024 10:00 AM EDT [facility] [address] [facility] [address] [place] [address] Tanisha Soares MD [address] [facility] [address] [place] [address] [facility] Start: 08-09-2024 Screening for malign ant neoplasm of breast Mammogram [facility] Start: 08-03-2024 Pneumococcal Vaccine : 65+ Years (1 of 2 - PCV) Pneumococcal Vaccine: 65+ Years (1 of 2 - PCV) [facility] Comment on above: Postponed from 08/12 (Patient Refused) Start: 06-17-2024 End: 06-17-2024 Patient encounter procedure [facility] Comment on above: Arrived Start: 06-10-2024 End: 06-10-2025 CT Head WO contrast CT head wo IV contrast Imaging STAT Injury of head, initial encounter Expected: 06/10/2024, Expires: 06/10/2025 [facility] Work Phone: Comment on above: Expected: 06/10/2024 , Expires: 06/10/2025 Start: 05-08-2024 DTaP/Tdap/Td Vaccine s (2 - Td or Tdap) DTaP/Tdap/Td Vaccines (2 - Td or Tdap) [facility] Start: 05-07-2024 Influenza vaccination Influenza Vacc ine (#1) [facility] Comment on above: Postponed from 02/10 (Patient Refused) Start: 03-12-2024 End: 03-12-2024 Patient encounter procedure 03/12/2024 11:30 AM EDT Office Visit [facility] [address] [place] [address] Bibi Spangler NP [address] [place], [place] [id number] Arrived [facility] Comment on above: Arrived Start: 02-11-2024 COVID-19 Vaccine ( season) COVID-19 Vaccine ( season) [facility] Start: 02-11-2024 Influenza vaccination [facility] Start: 09-18-2023 FUV, Provider: Tanisha Soares, Status: Pen, Time: 11:15 AM FUV, Provider: Tanisha Soares, Status: Pen, Time: 11:15 AM [place] [address] DO Work Phone: Start: 07-27-2023 End: 09-24-2024 DBT Breast - bilateral screening Bilateral screening mammogram with tomosynthesis Imaging Routine Encounter for screening mammogram for malignant neoplasm of breast Expected: 07/27/2023, Expires: 09/24/2024 [facility] Work Phone: Comment on above: Expected: 07/27/2023 , Expires: 09/24/2024 Start: 02-10-2023 COVID-19 Vaccine ( season) COVID-19 Vaccine ( season) [facility] Start: 02-10-2023 Influenza vaccination Influenza Vacc ine (#1) [facility] Start: 01-11-2023 Screening for malign ant neoplasm of breast Mammogram [facility] Start: 12-21-2022 FUV, Provider: Jackelin Tarango, Status: Pen, Time: 11:30 AM FUV, Provider: Jackelin Tarango, Status: Pen, Time: 11:30 AM [facility] [place] 250 DO Work Phone: Start: 09-19-2022 FUV, Provider: Tanisha Soares, Status: Pen, Time: 11:00 AM FUV, Provider: Tanisha Soares, Status: Pen, Time: 11:00 AM [facility] Work Phone: Start: 05-23-2022 FUV, Provider: Tanisha Soares, Status: Pen, Time: 11:15 AM FUV, Provider: Tanisha Soares, Status: Pen, Time: 11:15 AM -[facility] [place] 250 DO Work Phone: Start: 05-17-2022 ECHO, Provider: JERRY MACDONALDI ULTRASOUND 01,[id number], Status: Pen, Time: 1:30 PM ECHO, Provider: JERRY HHVI ULTRASOUND 01,[id number], Status: Pen, Time: 1:30 PM -[facility] [place] 250 DO Work Phone: Start: 05-17-2022 STRESS DIPTI, Provider : JERRY MACDONALDI NUCLEAR 01,[id number], Status: Pen, Time: 11:00 AM STRESS DIPTI, Provider: JERRY HHVI NUCLEAR 01,[id number], Status: Pen, Time: 11:00 AM [facility] 250 DO Work Phone: Start: 2016 RSV High Risk: (Elde rly (60+) or Population) (1 - Risk 60-74 years 1-dose series) RSV High Risk: (Elderly (60+) or Population) (1 - Risk 60-74 years 1-dose series) [facility] Start: 2016 RSV patient s and/or patients aged 60+ years (1 - 1-dose 60+ series) RSV patients and/or patients aged 60+ years (1 - 1-dose 60+ series) [facility] Start: 2006 Zoster Vaccines (1 o f 2) Zoster Vaccines (1 of 2) [facility] Start: 08-13-1975 Pneumococcal vaccination Pneumococcal Vaccine (1 of 2 - PCV) [facility] Start: 08-13-1975 Pneumococcal Vaccine : 65+ Years (1 of 2 - PCV) Pneumococcal Vaccine: 65+ Years (1 of 2 - PCV) [facility] Start: 1974 Diabetes mellitus screening Diabetes Screening [facility] Start: 1974 Hepatitis C screening Hepatitis C Sc [facility] Start: 1962 Pneumococcal Vaccine : 65+ Years (1 of 2 - PCV) Pneumococcal Vaccine: 65+ Years (1 of 2 - PCV) [facility] Start: 1956 Medicare Annual Wellness (AWV) Medicare Annual Wellness (AWV) [facility] Start: 1956 Screening for malign ant neoplasm of colon [facility] Start: 1956 Yearly Adult Physical Yearly Adult P hysical [facility] Immunizations Immunization Date Immunization Notes Care Provider Dalila garcia 06-02-2024 tetanus toxoid, reduced diphtheria toxoid, and acellular pertussis vaccine, adsorbed Bibi Spangler NP Work Phone: [facility] 08-06-2021 Comirnaty 30 MCG/0.3 ML Intramuscular Suspension Cindy Patel Work Phone: [facility] [place] 250 DO Work Phone: 02-05-2021 Pfizer-BioNTech COVID-19 Vacc 30 MCG/0.3ML Intramuscular Suspension Cindy Patel Work Phone: [facility] [place] 250 DO Work Phone: 01-15-2021 Pfizer-BioNTech COVID-19 Vacc 30 MCG/0.3ML Intramuscular Suspension Cindy Patel Work Phone: -[facility] 250 DO Work Phone: 05-08-2014 tetanus toxoid, reduced diphtheria toxoid, and acellular pertussis vaccine, adsorbed Bibi Spangler [employer] Work Phone: [facility] Payers Date Payer Category Payer Private Health Insurance [facility] [id number] 2023 Unknown [id number] 2021 Medicare [id number] 2021 Miscellaneous or Other [facility] [id number] 2021 Unknown 2021 Medicare [id number] 2021 Unknown [id number] 1956 Unknown [id number] [id number] 1956 Unknown [id number]. [id number] 1956 Unknown [id number] [id number] 1956 Unknown [id number]. [id number] 1956 Unknown [id number] [id number]. 2.1259 1956 Unknown [id number] 2.1259 1956 Unknown [id number] [id number]. 2.1259 1956 Unknown [id number] [id number]. 2.1259 1956 Unknown [id number] [id number]. 2.1259 1956 Unknown [id number] [id number] 2.1259 1956 Unknown [id number] [id number] Social History Date Type Detail Facility Start: 10-09-2023 End: 10-28-2024 Daily caffeine consumption, 1 serving a day Daily caffeine consumption, 1 serving a day -[facility] 250 DO Work Phone: Tobacco smoking stat [facility] Tobacco smoking consumption unknown [facility] Start: 1955 Sex Assigned At Not on file [facility] Start: 10-09-2023 End: 10-28-2024 Gender identity Not on file [facility] Start: 10-09-2023 Tobacco smoking stat [facility] Ex-smoker [facility] Start: 06-12-1986 History of tobacco use Current smoke r [facility] Work Phone: Start: 06-12-1986 History of tobacco use Cigarette Smo ker [facility] Work Phone: Start: 08-02-2023 End: 10-09-2023 Tobacco use and exposure Smokeless tobacco non-user [facility] Work Phone: Start: 10-09-2023 End: 10-28-2024 Alcoholic beverage intake Lifetime non-drinker (finding) [facility] Work Phone: Start: 09-29-2023 End: 10-28-2024 Exposure to SARS-CoV-2 (event) Not sure [facility] Start: 08-02-2023 Tobacco smoking stat us MEIS Never smoked tobacco [facility] Start: 10-02-2023 End: 10-24-2024 Alcoholic beverage intake Ex-drinker (finding) [facility] Start: 08-02-2023 Alcohol Comment Caffeine intak e : 1-2 cups per day [facility] Functional Status Date Assessment Result Facility 10-24-2024 Patient Health Quest ionnaire 2 item (PHQ-2) [Reported] [facility] Clinical Notes 03-12-2022 to 10-28-2024 Tanisha Soares MD - 10/28/2024 2:00 PM EDTPatient InstructionsCed Busby NP - 10/24/2024 9:00 AM Rimma Spangler NP - 06/17/2024 11:30 AM ESTPatient Instructions Note Date & Type Note Facility 10-28-2024 History of Presen t illness Narrative Images from the original note were not [...] mild tricuspid regurgitation, normal IVC, RVSP millimeters mercury 4. Hypertension 5. Low vitamin D level-27 [...] data and diagnostic testing results that occurred after the last office visit with me Assessment: 1. Primary hypertension Follow Up In Cardiology 2. Mixed hyperlipidemia 3. Former smoker 4. Body mass index (BMI) of 28.0 to 28.9 in adult Clinical Decision Making: Patient is doing well on current medical therapy which will be continued. Blood pressure is at target. Lipid profile is at target she is following a heart healthy lifestyle Follow up : 1 year ISafia LPN am scribing for, and in the presence of Dr. Tanisha Soares MD, FAC. I, Dr. Tanisha Soares MD, FACC, personally performed the services described in the documentation as scribed by Safia Messer LPN in my presence, and confirm it is both accurate and complete. documented in this encounter [facility] Work Phone: 10-28-2024 Instructions Kiersten Magaña CMA - 10/28/2024 2:00 PM [...] Prevention Education Given documented in this encounter [facility] Work Phone: 10-24-2024 History of Presen t illness Narrative Images from the original note were not included. Beverly Bonilla is a 69 y.o. female presents with chief complaint of Medicare Annual Wellness Visit Subsequent HPI: Reports she is doing well and feeling good. Has been walking every day and eating well. Has lost 11 lbs in the last 4 months. She has [...] Not done Cognitive Screening Three Word Registration: Josette Leal, Finger Clock Drawing: Normal Clock - 2 [...] 0856 BP: 142/90 Pulse: 76 Temp: 96.8 F SpO2: 98% Vitals: 10/24/24 0947 BP: 132/80 [...] tenderness or frontal sinus tenderness. Mouth/Throat: Lips: [place]. Mouth: Mucous membranes are moist. Pharynx: Oropharynx [...] asthma without status asthmaticus without complication (CMS/HCC) Complete right bundle branch block (RBBB) Primary hypertension ([facility]/HCC) - Comprehensive metabolic panel; Future Discussed current management plan. Goal BP less then 130/80. Discussed heart healthy diet, increase fruits and vegetables, limit salt intake. Encouraged increase [...] Vitamin D 25 hydroxy; Future Mixed hyperlipidemia ([facility]) - Lipid panel; Future Former smoker Medicare annual wellness visit, subsequent Wellness performed at today. Height, weight, BMI, problem list, and [...] follow-ups on file. documented in this encounter [facility] 06-17-2024 History of Presen t illness Narrative Images from the original note were not included. Beverly Bonilla is a 68 y.o. female presents with chief complaint of Follow-up HPI: HPI Patient is present for a 1 week follow up for recheck of headaches after a recent fall. Patient states that the area where she fell and hit her head is roving can tender to touch and she does still get an occasional headache, but states she feels she is getting better each day. Patient denies any dizziness or blurred vision. SUBJECTIVE: MEDICATIONS: Current Outpatient Medications Medication Instructions acetaminophen (Tylenol 8 Hour) 650 MG ER tablet Every 8 hours atorvastatin (LIPITOR) 10 mg, Daily RT losartan (COZAAR) 50 mg, Daily Multiple Vitamin (multivitamin) capsule 1 capsule, Daily tiZANidine (ZANAFLEX) 2 mg, Oral, Daily PRN I have reviewed and reconciled the history and medication list with the patient today. REVIEW OF SYMPTOMS: Review of Systems Constitutional: Negative for chills and fatigue. HENT: Negative for ear discharge, ear pain, rhinorrhea and sore throat. Eyes: Negative for pain and redness. Respiratory: Negative for cough and chest tightness. Cardiovascular: Negative for chest pain and palpitations. Gastrointestinal: Negative for abdominal distention and abdominal pain. Genitourinary: Negative for difficulty urinating and frequency. Musculoskeletal: Negative for arthralgias and gait problem. Skin: Negative. Neurological: Negative for dizziness and numbness. Endocrine: Negative. Allergic/Immunologic: Negative. OBJECTIVE: Visit Vitals Smoking Status Never Physical Exam Vitals reviewed. Cardiovascular: Rate and Rhythm: Normal rate and regular rhythm. Pulses: Normal pulses. Heart sounds: Normal heart sounds. Pulmonary: Effort: Pulmonary effort is normal. Breath sounds: Normal breath sounds. Abdominal: General: Abdomen is flat. Bowel sounds are normal. Palpations: Abdomen is soft. Musculoskeletal: General: Normal range of motion. Skin: General: Skin is warm and dry. Neurological: General: No focal deficit present. Mental Status: She is oriented to person, place, and time. ASSESSMENT AND PLAN: Assessment/Plan Diagnoses and all orders for this visit: Injury of head, subsequent encounter-improving symptoms. Reviewed ct head results. Patient will seek immediate medical attention if symptoms worsen or don't improve. Acute intractable headache, unspecified headache type Primary hypertension (CMS/HCC)-stable continue on current medications. documented in this encounter [facility] 06-10-2024 History of Presen t illness Narrative Images from the original note were not included. Beverly Bonilla is a 68 y.o. female presents with chief complaint of ER Follow-up HPI: HPI Patient presents today for Er follow up. Pt went to [facility] ER on 06/02. She states she fell backwards and hit her head in the the parking lot a [employer]. She states it hurt when it happened. Went to the er and did a CT scan that showed up negative. She states there is a scrap on the back of her head. She also gets a headache every now and than as well. SUBJECTIVE: MEDICATIONS: Current Outpatient Medications Medication Instructions acetaminophen (Tylenol 8 Hour) 650 MG ER tablet Every 8 hours atorvastatin (LIPITOR) 10 mg, Daily RT losartan (COZAAR) 50 mg, Daily Multiple Vitamin (multivitamin) capsule 1 capsule, Daily tiZANidine (ZANAFLEX) 2 mg, Oral, Daily PRN I have reviewed and reconciled the history and medication list with the patient today. REVIEW OF SYMPTOMS: Review of Systems Constitutional: Negative for chills and fatigue. HENT: Negative for ear discharge, ear pain, rhinorrhea and sore throat. Eyes: Negative for pain and redness. Respiratory: Negative for cough and chest tightness. Cardiovascular: Negative for chest pain and palpitations. Gastrointestinal: Negative for abdominal distention and abdominal pain. Genitourinary: Negative for difficulty urinating and frequency. Musculoskeletal: Negative for arthralgias and gait problem. Skin: Negative. Neurological: Negative for dizziness and numbness. Endocrine: Negative. Allergic/Immunologic: Negative. OBJECTIVE: Visit Vitals BP 128/82 Pulse 60 Ht 5' 5 Wt 203 lb 12.8 oz SpO2 97% BMI 33.91 kg/m Smoking Status Never BSA 2.06 m Physical Exam Vitals reviewed. Cardiovascular: Rate and Rhythm: Normal rate and regular rhythm. Pulses: Normal pulses. Heart sounds: Normal heart sounds. Pulmonary: Effort: Pulmonary effort is normal. Breath sounds: Normal breath sounds. Abdominal: General: Abdomen is flat. Bowel sounds are normal. Palpations: Abdomen is soft. Musculoskeletal: General: Normal range of motion. Skin: General: Skin is warm and dry. Neurological: General: No focal deficit present. Mental Status: She is oriented to person, place, and time. ASSESSMENT AND PLAN: Assessment/Plan Diagnoses and all orders for this visit: Injury of head, initial encounter-patient was seen in ER and had ct head and headache is not going away - CT head wo IV contrast; Future Primary hypertension (CMS/HCC)-stable continue on current medications documented in this encounter [facility] 05-07-2024 Telephone encounter Note Pt asking for flexeril rx to be sent to [facility] in [place] [facility] 05-07-2024 Miscellaneous Notes Pt asking for flexeril rx to be sent to [facility] in [place] documented in this encounter [facility] 03-13-2024 Telephone encounter Note Patient was seen yesterday, she is still not feeling the best- she has a headache and fatigue. She would like an off work note for yesterday, today, and Monday. Mar.12 thru Mar.15. Please call when ready. Thank you. [facility] 03-13-2024 Miscellaneous Notes Patient was seen yesterday, she is still not feeling the best- she has a headache and fatigue. She would like an off work note for yesterday, today, and Monday. Mar.12 thru Mar.15. Please call when ready. Thank you. documented in this encounter [facility] 03-12-2024 History of Presen t illness Narrative Images from the original note were not included. Beverly Bonilla is a 68 y.o. female presents with chief complaint of Sinus Problem HPI: HPI Patient is present with c/o sinus pressure and facial pain that started on Monday. She states she has a runny nose, but it is clear. She denies any colored mucus or coughing. SUBJECTIVE: MEDICATIONS: Current Outpatient Medications Medication Instructions acetaminophen (Tylenol 8 Hour) 650 MG ER tablet Every 8 hours atorvastatin (LIPITOR) 10 mg, Oral, Daily RT losartan (COZAAR) 50 mg, Oral, Daily Multiple Vitamin (multivitamin) capsule 1 capsule, Oral, Daily I have reviewed and reconciled the history and medication list with the patient today. REVIEW OF SYMPTOMS: Review of Systems Constitutional: Positive for fatigue. HENT: Positive for congestion, rhinorrhea and sore throat. Respiratory: Positive for cough and wheezing. Negative for shortness of breath. Cardiovascular: Negative for chest pain and palpitations. Gastrointestinal: Negative. Musculoskeletal: Negative. Skin: Negative. Neurological: Negative. OBJECTIVE: Visit Vitals Smoking Status Never Physical Exam Vitals and nursing note reviewed. Constitutional: Appearance: She is well-developed. HENT: Head: Normocephalic. Right Ear: Hearing normal. Left Ear: Hearing normal. Nose: Congestion and rhinorrhea present. Right Sinus: Maxillary sinus tenderness and frontal sinus tenderness present. Left Sinus: Maxillary sinus tenderness and frontal sinus tenderness present. Mouth/Throat: Mouth: Mucous membranes are moist. Pharynx: Posterior oropharyngeal erythema present. No oropharyngeal exudate. Tonsils: No tonsillar exudate. Cardiovascular: Rate and Rhythm: Normal rate and regular rhythm. Heart sounds: Normal heart sounds. Pulmonary: Effort: Pulmonary effort is normal. Breath sounds: Normal breath sounds. Abdominal: General: Abdomen is flat. There is no distension. Tenderness: There is no abdominal tenderness. Musculoskeletal: Cervical back: Neck supple. Lymphadenopathy: Cervical: Right cervical: No superficial cervical adenopathy. Left cervical: No superficial cervical adenopathy. Skin: General: Skin is warm. Capillary Refill: Capillary refill takes less than 2 seconds. Neurological: General: No focal deficit present. Mental Status: She is alert and oriented to person, place, and time. ASSESSMENT AND PLAN: Assessment/Plan Diagnoses and all orders for this visit: Acute non-recurrent pansinusitis - amoxicillin-clavulanate (Augmentin) 500-125 MG tablet; Take 1 tablet (500 mg) by mouth in the morning and 1 tablet (500 mg) before bedtime. Do all this for 10 days. - STATUS COVID-19/FLU Primary hypertension (CMS/HCC)-stable continue on current medications. documented in this encounter [facility] 10-09-2023 History of Presen t illness Narrative I last saw patient in September 2022. At that time we started losartan. Patient saw Jackelin Handy NP in follow-up in December 2022. I have reviewed Jackelin's notes. Subjective : Interval review of systems is negative for chest discomfort pressure tightness heaviness palpitations lightheadedness orthopnea paroxysmal nocturnal dyspnea dependent edema or claudication TIA or CVA type symptoms or bleeding diathesis Sinus headache Blood pressure elevated when headache occurs Also has generalized aches and pains, and a diagnosis of fibromyalgia Blood pressure is elevated in the office 150/82, she reports that home blood pressures are 120s to 130s/70s. History so Far : 1. This is [...] mild tricuspid regurgitation, normal IVC, RVSP millimeters mercury 4. Hypertension 5. Low vitamin D level-27 on 10/02/2023 Objective Wt Readings from Last 3 Encounters: 10/09/23 89.7 kg (197 lb 12.8 oz) 12/21/22 88 kg (194 lb) 09/19/22 89.8 kg (198 lb) Vitals: 10/09/23 1128 10/09/23 1201 BP: 150/82 142/80 BP Location: Left arm Left arm Patient Position: Sitting Sitting Pulse: 84 Weight: 89.7 kg (197 lb 12.8 oz) Height: 1.676 m (5' 6 ) Physical Exam: GENERAL APPEARANCE: in no [...] cyclobenzaprine (Flexeril) 10 mg tablet 1 tablet, oral, 3 times daily PRN multivitamin tablet 1 tablet, oral, Daily No Known Allergies LABS: Lipid profile September 2023-total cholesterol 162 HDL 80 triglycerides 52 LDL 69 vitamin D level 27 Patient Active Problem List Diagnosis Date Noted BMI 31.0-31.9,adult 10/09/2023 Former smoker 10/09/2023 Medication course changed 10/09/2023 Abnormal EKG 06/07/2023 Complete right bundle branch block (RBBB) 06/07/2023 Elevated blood pressure reading 06/07/2023 Fibromyalgia 06/07/2023 Mixed hyperlipidemia 06/07/2023 Primary hypertension 06/07/2023 Assessment: 1. Primary hypertension 2. Mixed hyperlipidemia 3. Complete right bundle branch block (RBBB) 4. Fibromyalgia 5. BMI 31.0-31.9,adult 6. Former smoker 7. Medication course changed Repeat blood pressure was 132/78, however I suspect that her blood pressure is frequently above target. Will increase losartan from 50 mg to 100 mg daily. Cardiac medications refilled. She was told that her vitamin D levels are low, and supplementing vitamin D may be beneficial for her overall health. She will address with primary care. Follow up : 1 year Provider Attestation - Scribe documentation All medical record entries made by the Scribe were at my direction and personally dictated by me. I have reviewed the chart and agree that the record accurately reflects my personal performance of the history, physical exam, discussion and plan. Scribe Attestation By signing my name below, IJordyn LPN, Scribe attest that this documentation has been prepared under the direction and in the presence of Tanisha Soares MD. documented in this encounter [facility] Work Phone: 10-09-2023 Instructions Jordyn Parish LPN - 10/09/2023 11:30 AM EDT Please bring all medicines, vitamins, and herbal supplements with you when you come to the office. Prescriptions will not be filled unless you are compliant with your follow up appointments or have a follow up appointment scheduled as per instruction of your physician. Refills should be requested at the time of your visit. documented in this encounter [facility] Work Phone: 07-27-2023 Telephone encounter Note Patient called needing an order for a mammogram. Bob [facility] 07-27-2023 Miscellaneous Notes Patient called needing an order for a mammogram. Bob documented in this encounter [facility] 03-12-2022 History of Presen t illness Narrative Patient was most recently seen in March 2022. In May she went on to have a stress test and echocardiogram. She presents for follow-up.Interval review of systems is negative for chest discomfort pressure tightness heaviness palpitations lightheadedness orthopnea paroxysmal nocturnal dyspnea dependent edema or claudication TIA or CVA type symptoms or bleeding diathesisTest results were reviewed with her.In view of the elevation in blood pressure, we will initiate losartan. She has lost 10 pounds since her last visit with us.She is following a heart healthy lifestyle.Assessment:1. This is a postmenopausal female with an incomplete right bundle branch block and exertional shortness of breath, and diffuse myalgia, she carries a diagnosis of fibromyalgia. She quit smoking in 1986 after smoking for about 10 years.2. Patient exercised to a workload of 7 METS Wood treadmill score of 5 blood appropriate hemodynamic response no cardiac symptoms or diagnostic ST-T. Test was done 05/18/2022. Hypertensive at baseline with hypertensive response to exercise.3. Echocardiogram May 2022-LVEF 70% impaired progression pattern of LV diastolic filling aortic root size normal no pericardial effusion left atrial diameter 3.6 cm, normal RV size and systolic function, trace mitral regurgitation, mild tricuspid regurgitation, normal IVC, RVSP millimeters mercury4. HypertensionRecommendations:1. Continue efforts at weight loss2. Start losartan3. Basic metabolic profile 7 to 10 days after initiation of losartan4. Follow-up as scheduled5. Patient understands that coronary artery disease is a dynamic process and that if symptoms change she needs to seek medical attention.6. Potential side effects of losartan were discussed.Recommendations: -[facility] Dianxin DO Work Phone: Chief complaint Narrative - Reported BEVERLY BONILLA is being seen for a consultation for an abnormal ECG. [facility] Dianxin DO Work Phone: Chief complaint Narrative - Reported BEVERLY BONILLA is being seen for a consultation for an abnormal ECG. [facility] Dianxin DO Work Phone: Chief complaint Narrative - Reported BEVERLY BONILLA is being seen for a consultation for an abnormal ECG. [facility] Work Phone: Evaluation note Diagnosis Breast screening- Primary Breast screening, unspecified Encounter for screening mammogram for malignant neoplasm of breast documented in this encounter [facility] HealthcareEvaluation note* Diagnosis Primary hypertension Unspecified essential hypertension Mixed hyperlipidemia Complete right bundle branch block (RBBB) Fibromyalgia Unspecified myalgia and myositis BMI 31.0-31.9,adult Former smoker Personal history of tobacco use, presenting hazards to health Medication course changed documented in this encounter [facility] Work Phone: Evaluation note* Diagnosis Acute non-recurrent pansinusitis- Primary Primary hypertension (CMS/HCC) Unspecified essential hypertension documented in this encounter [facility]* Diagnosis Fibromyalgia- Primary Unspecified myalgia and myositis documented in this encounter [facility] HealthcareEvaluation note* Diagnosis Injury of head, initial encounter- Primary Primary hypertension (CMS/HCC) Unspecified essential hypertension documented in this encounter [facility] HealthcareEvaluation note* Diagnosis Injury of head, subsequent encounter- Primary Acute intractable headache, unspecified headache type Primary hypertension (CMS/HCC) Unspecified essential hypertension documented in this encounter [facility] HealthcareEvaluation note* Diagnosis Mild intermittent asthma without status asthmaticus without complication (CMS/HCC)- Primary Complete right bundle branch block (RBBB) Primary hypertension (CMS/HCC) Unspecified essential hypertension Fibromyalgia Unspecified myalgia and myositis BMI 31.0-31.9,adult Vitamin D deficiency Mixed hyperlipidemia (CMS/HCC) Mixed hyperlipidemia Former smoker Personal history of tobacco use, presenting hazards to health Medicare annual wellness visit, subsequent documented in this encounter [facility] HealthcareEvaluation note* Diagnosis Primary hypertension Unspecified essential hypertension Mixed hyperlipidemia Former smoker Personal history of tobacco use, presenting hazards to health Body mass index (BMI) of 28.0 to 28.9 in adult documented in this encounter [facility] Work Phone: History of Present illness Narrative* 66-year-old female is accompanied by her to the office, she is new to this provider, and isbeing seen regarding abnormalities on EKG showing right bundle branch block. Primary MD is Andie. * I reviewed her EKG and it shows normal sinus rhythm left atrial abnormality and incomplete right bundle branch block. * Patient's blood pressure is elevated, we repeated it, and still elevated. She is currently in the middle of a fibromyalgia flare. She says that her body hurts in multiple areas, achy all over. 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 She says that her fibromyalgia gets worse in the fall low-dose statin,. * She has exertional shortness of breath no orthopnea or PND denies lower extremity edema does not complain of palpitations lightheadedness presyncope or syncope. Her BMI is above target * Her laboratory data from January 2022 was reviewed, she has a low vitamin D level of 20 glucose is 80 BUN 19 creatinine 1.58 sodium 139 potassium 3.9 liver enzymes are normal GFR 100 TSH 1.41 total cholesterol 232 triglycerides 98 HDL 84 LDL 128 total cholesterol to HDL ratio 2.8 hemoglobin 12.7 andres tocrit 39.8 platelets 363 * An EKG from July 2021 showed sinus rhythm and incomplete right bundle branch block blood pressure during that EKG was elevated at 122/84 * Patient quit smoking in 1986 after smoking for about 10 years * Assessment: * 1. This is a postmenopausal female with an incomplete right bundle branch block and exertional shortness of breath, and diffuse myalgia, she carries a diagnosis of fibromyalgia. She quit smoking in 1986 after smoking for about 10 years. * Recommendations: * It is prudent to proceed with additional testing, we will do an echocardiogram and a stress Myoview, and we will follow-up after that. I would like for her to keep track of her blood pressures, and it is very likely that she will need antihypertensive regimen. She has a home blood pressure monitoring device, she will bring in her blood pressure machine as well to make sure that the numbers tally. * I thought about increasing her statin dose, but decided against it she is since she is complaining of a fibromyalgia flare. For that reason she has also requested that we do not proceed with her stress test for a few weeks. * She understands that coronary disease is a dynamic process, we talked about the typical and atypical symptoms, she understands that she needs to seek prompt medical attention if those symptoms occur.Heart healthy lifestyle was also encouraged. * I thank you for the opportunity to be involved in patient's care, please do not hesitate to call if further questions arise, * Sincerely, * Tanisha Soares MD [facility] 250 DO Work Phone: History of Present illness Narrative* 66-year-old female is accompanied by her to the office, she is new to this provider, and isbeing seen regarding abnormalities on EKG showing right bundle branch block. Primary MD is Andie. * I reviewed her EKG and it shows normal sinus rhythm left atrial abnormality and incomplete right bundle branch block. * Patient's blood pressure is elevated, we repeated it, and still elevated. She is currently in the middle of a fibromyalgia flare. She says that her body hurts in multiple areas, achy all over. 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 She says that her fibromyalgia gets worse in the fall low-dose statin,. * She has exertional shortness of breath no orthopnea or PND denies lower extremity edema does not complain of palpitations lightheadedness presyncope or syncope. Her BMI is above target * Her laboratory data from January 2022 was reviewed, she has a low vitamin D level of 20 glucose is 80 BUN 19 creatinine 1.58 sodium 139 potassium 3.9 liver enzymes are normal GFR 100 TSH 1.41 total cholesterol 232 triglycerides 98 HDL 84 LDL 128 total cholesterol to HDL ratio 2.8 hemoglobin 12.7 andres tocrit 39.8 platelets 363 * An EKG from July 2021 showed sinus rhythm and incomplete right bundle branch block blood pressure during that EKG was elevated at 122/84 * Patient quit smoking in 1986 after smoking for about 10 years * Assessment: * 1. This is a postmenopausal female with an incomplete right bundle branch block and exertional shortness of breath, and diffuse myalgia, she carries a diagnosis of fibromyalgia. She quit smoking in 1986 after smoking for about 10 years. * Recommendations: * It is prudent to proceed with additional testing, we will do an echocardiogram and a stress Myoview, and we will follow-up after that. I would like for her to keep track of her blood pressures, and it is very likely that she will need antihypertensive regimen. She has a home blood pressure monitoring device, she will bring in her blood pressure machine as well to make sure that the numbers tally. * I thought about increasing her statin dose, but decided against it she is since she is complaining of a fibromyalgia flare. For that reason she has also requested that we do not proceed with her stress test for a few weeks. * She understands that coronary disease is a dynamic process, we talked about the typical and atypical symptoms, she understands that she needs to seek prompt medical attention if those symptoms occur.Heart healthy lifestyle was also encouraged. * I thank you for the opportunity to be involved in patient's care, please do not hesitate to call if further questions arise, * Sincerely, * Tanisha Soares MD [facility] Work Phone: History of Present illness Narrative* Assessment: * 1. This is a postmenopausal female with an incomplete right bundle branch block and exertional shortness of breath, and diffuse myalgia, she carries a diagnosis of fibromyalgia. She quit smoking in 1986 after smoking for about 10 years. * Recommendations: * It is prudent to proceed with additional testing, we will do an echocardiogram and a stress Myoview, and we will follow-up after that. I would like for her to keep track of her blood pressures, and it is very likely that she will need antihypertensive regimen. She has a home blood pressure monitoring device, she will bring in her blood pressure machine as well to make sure that the numbers tally. * I thought about increasing her statin dose, but decided against it she is since she is complaining of a fibromyalgia flare. For that reason she has also requested that we do not proceed with her stress test for a few weeks. -[facility] Dianxin DO Work Phone: History of Present illness Narrative* The patient presents for follow-up of essential hypertension. The patient states she has been doingwell with her blood pressure control since the last visit. She has no comorbid illnesses. * Symptoms: denies impaired vision, denies dyspnea, denies chest pain, denies intermittent leg claudication and denies lower extremity edema. Associated symptoms include no headache. * Home monitoring: The patient checks her blood pressure regularly. Blood pressure control has been good. * Medications: the patient is adherent with her medication regimen. She denies medication side effects. [facility] Work Phone: Reason for referral (narrative)* Consultation (Routine) - Authorized Specialty Diagnoses / Procedures Referred By Edu erickson Referred To Contact Cardiology Diagnoses Primary hypertension Procedures Follow Up In Cardiology Tanisha Soares MD [address] [place] [id number] Tanisha Soares MD [address] [place] [id number] Referral ID Status Reason Start Date Expiration Date V isits Requested Visits Authorized [id number] Authorized 10/09/2023 10/08/2024 1 1 [facility] Work Phone: Summary Purpose Family History No Family History Records Found Advance Directives No Advanced Directives Records FoundNo Advanced Directives Records FoundNo Advanced Directives Records FoundNo Advanced Directives Records FoundNo Advanced Directives Records Found Chief Complaint BEVERLY BONILLA is being seen for ECHO, GXT.BEVERLY BONILLA is being seen for ECHO, GXT.* Blood pressure f/u: 'doing ok' * BEVERLY BONILLA is being seen for hypertension. Additional Source Comments INFORMATION SOURCE (unrecogn ized section and content) DATE CREATED AUTHOR 05/19/2022 [facility] DATE CREATED AUTHOR AUTHOR'S ORGANIZ ATION 12/22/2022 [facility] DATE CREATED AUTHOR AUTHOR'S ORGANIZ ATION 12/23/2022 [employer] DATE CREATED AUTHOR AUTHOR'S ORGANIZ ATION 10/25/2024 [facility] EPIC DATE CREATED AUTHOR AUTHOR'S ORGANIZ ATION 10/29/2024 [facility] Artist Relationship Manager Teams (unrecognized sec tion and content) Office Machine Service Supervisor Relationship Specialty Start Date End Date Cindy Patel MD [address] [place] [address] PCP - General Family Medicine 10/18/22 Office Machine Service Supervisor Relationship Specialty Start Date End Date Cindy Patel MD [address] [place] [address] PCP - General Family Medicine 10/18/22 Office Machine Service Supervisor Relationship Specialty Start Date End Date Cindy Patel MD [address] [place] [id number] PCP - General 03/28/22 Office Machine Service Supervisor Relationship Specialty Start Date End Date Cindy Patel MD [address] [place] [address] PCP - General Family Medicine 10/18/22 Office Machine Service Supervisor Relationship Specialty Start Date End Date Cindy Patel MD [address] [place] [address] PCP - General Family Medicine 10/18/22 Office Machine Service Supervisor Relationship Specialty Start Date End Date Cindy Patel MD [address] [place] [address] PCP - General Family Medicine 10/18/22 Office Machine Service Supervisor Relationship Specialty Start Date End Date Cindy Patel MD [address] [place] [address] PCP - General Family Medicine 10/18/22 Office Machine Service Supervisor Relationship Specialty Start Date End Date Cindy Patel MD [address] [place] [address] PCP - General Family Medicine 10/18/22 Office Machine Service Supervisor Relationship Specialty Start Date End Date Cindy Patel MD [address] [place] [address] PCP - General Family Medicine 10/18/22 Office Machine Service Supervisor Relationship Specialty Start Date End Date Cindy Patel MD [address] [place] [address] PCP - General Family Medicine 10/18/22 Office Machine Service Supervisor Relationship Specialty Start Date End Date Cindy Patel MD [address] [place] [address] PCP - General Family Medicine 10/18/22 Ced Busby NP [address] [place] [address] PCP - ACO Reach 07/19/24 Office Machine Service Supervisor Relationship Specialty Start Date End Date Cindy Patel MD [address] [place] [address] PCP - General Family Medicine 10/18/22 Ced Busby NP [address] [place] [address] PCP - ACO Reach 07/19/24 Office Machine Service Supervisor Relationship Specialty Start Date End Date Cindy Patel MD [address] [place] [address] PCP - General 03/28/22 Reason for Visit (unrecogniz ed section and content) Reason Comments Follow-up Reason Comments Sinus Problem Reason Comments ER Follow-up Reason Comments Follow-up Reason Comments Medicare Annual Wellness Visit Subsequen t Reason Comments Annual Exam 1 year Follow up for Hypertension Specialty Diagnoses / Procedures Referred By Contac t Referred To Contact Cardiology Diagnoses Primary hypertension Procedures Follow Up In Cardiology Tanisha Soares MD Phone: tel: fax: Tanisha Soares MD [address] [facility] [address] [place] [address] Phone: tel: fax: Referral ID Status Reason Start Date Expiration Date V isits Requested Visits Authorized [id number] Authorized 10/09/2023 10/08/2024 1 1 FOR RECORDS PERTAINING TO PATIENTS WHO ARE OR HAVE BEEN ENROLLED IN A CHEMICAL DEPENDENCY/SUBSTANCEABUSE PROGRAM, SOME INFORMATION MAY BE OMITTED. This clinical summary was aggregated from multiple sources. Caution should be exercised in using it in the provision of clinical care. This summary normalizes information from multiple sources, and as a consequence, information in this document may materially change the coding, format and clinical context of patient data. In addition, data may be omitted in some cases. CLINICAL DECISIONS SHOULD BE BASED ON THE PRIMARY CLINICAL RECORDS. [email or web address] [facility]. provides no warranty or guarantee of the accuracy or completeness of information in this document.
--- NOTE | 2024-11-07 17:53 | ECG_ITS ---
[facility] Test Date: 2024-11-07 Pat Name: MARITZA BONILLA Department: Room: - Gender: Female Car Rental Manager: : [id number] Requested By: Order Number: [id number] Reading MD: TOM MORGAN M.D. Measurements Intervals [place] Rate: 78 P: 50 CO: 166 QRS: -7 QRSD: 98 T: 59 QT: 384 QTc: 417 Interpretive Statements 1100 Sinus rhythm 2440 Incomplete right bundle branch block 3114 Cannot rule out anterior myocardial infarction, age undetermined 8102 Low QRS voltage in chest leads 9150 abnormal ECG No previous ECG available for comparison Electronically Signed On 11-07-2024 21:15:22 EDT by TOM MORGAN M.D.
--- NOTE | 2024-11-07 17:54 | ED.GENADUL1 ---
HPI HPI - General Adult General Chief complaint: Chest Pain Stated complaint: chest pain Time Seen by Provider: 11/07/24 17:49 Source: patient Mode of arrival: walk-in History of Present Illness HPI narrative: 69-year-old female presents for chest pain. She states it is essentially gone now, she just has some soreness. It started about 4 PM while she was sitting on the couch watching TV. There was no injury or unusual activity. It was isolated to the left side of her chest and does not seem to have radiated. No back pain or cough or shortness of breath. She had gone for a walk earlier today and did not have any pain. Related Data Allergies Allergy/AdvReac Type Severity Reaction Status Date / Time No Known Drug Allergies Allergy Verified 06/02/24 21:31 Opioid HPI Opioid Management Most Recent Opioid Data: Last Pain Scale 4 Today, 17:54 Review of Systems ROS Narrative A ten point review of systems is negative except as noted above. PFSH PFSH Social History Little interest or pleasure in doing things: not at all Feeling down, depressed, or hopeless: not at all Exam Narrative Exam Narrative: Nurses note and vital signs reviewed and patient is not hypoxic. General: The patient appears well and in no apparent distress. Patient is resting comfortably on cart. Skin: Warm, dry, no pallor noted. There is no rash noted. Head: Normocephalic, atraumatic Eye: Normal conjunctiva, no drainage Ears, Nose, Mouth, and Throat: oral mucosa is moist. Nares patent. Cardiovascular: Regular Rate and Rhythm Respiratory: Patient is in no distress, no accessory muscle use, lungs are clear to auscultation, no wheezing, rales or rhonchi Back: non-tender GI: Soft and nontender Musculoskeletal: The patient has no evidence of calf tenderness, no pitting edema, symmetrical pulses noted bilaterally Neurological: A&O, normal speech Psychiatric: Cooperative Constitutional Vital Signs, click to edit/add: Last Vital Signs Temp 97.7 F 11/07/24 17:47 Pulse 84 11/07/24 17:47 Resp 20 11/07/24 17:47 BP 153/83 H 11/07/24 17:47 Pulse Ox 98 11/07/24 17:54 O2 Del Method Room Air 11/07/24 17:54 Course Vital Signs Vital signs: Vital Signs Temperature 97.7 F 11/07/24 17:47 Pulse Rate 84 11/07/24 17:47 Respiratory Rate 20 11/07/24 17:47 Blood Pressure 153/83 H 11/07/24 17:47 Pulse Oximetry 96 11/07/24 17:47 Oxygen Delivery Method Room Air 11/07/24 17:47 Temperature 97.7 F 11/07/24 17:47 Pulse Rate 84 11/07/24 17:47 Respiratory Rate 20 11/07/24 17:47 Blood Pressure 153/83 H 11/07/24 17:47 Pulse Oximetry 98 11/07/24 17:54 Oxygen Delivery Method Room Air 11/07/24 17:54 Medical Decision Making MDM Narrative Medical decision making narrative: Tests are ordered including repeat troponin and the patient is signed out to Dr. George at change of shift. Differential Diagnosis Differential Diagnosis: STEMI, NSTEMI, pneumothorax, chest pain Lab Data Lab results reviewed: Yes I reviewed the patient's lab results Labs: Lab Results 11/07/24 Range/Units 17:52 WBC 8.2 (4.0-11.0) 10^3/uL RBC 4.64 (4.20-5.40) 10^6/uL Hgb 12.4 (12.0-16.0) g/dL Hct 38.8 (36.0-48.0) % MCV 83.6 (81.0-99.0) fL MCH 26.7 (26.7-34.0) pg MCHC 32.0 (29.9-35.2) g/dL RDW 14.5 (11.0-15.0) % Plt Count 326 (150-450) 10^3/uL MPV 10.3 (9.5-13.5) fL Neut % (Auto) 73.2 (43.0-75.0) % Lymph % (Auto) 15.6 L (20.5-60.0) % [place] % (Auto) 5.6 (1.7-12.0) % Eos % (Auto) 4.5 (0.9-7.0) % Baso % (Auto) 0.7 (0.2-2.0) % Neut # (Auto) 6.0 (1.4-6.5) 10^3/uL Lymph # (Auto) 1.3 (1.2-3.8) 10^3/uL [place] # (Auto) 0.5 (0.3-0.8) 10^3/uL Eos # (Auto) 0.4 (0.0-0.7) 10^3/uL Baso # (Auto) 0.1 (0.0-0.1) 10^3/uL Abs Immat Gran (auto) 0.03 (0.00-0.03) 10^3/uL Imm/Tot Granulo (auto) 0.4 (0.0-0.5) % ECG Data Attestation: I personally reviewed and interpreted this ECG as follows: (EKG on my interpretation shows sinus rhythm with a rate of 78 and no acute change. Incomplete right bundle branch block present.) Discharge Plan Discharge Patient Disposition: Still a Patient
[2024-11-07 18:26] LABS: Basophils Absolute Auto 0.1 10^3/uL (0.0-0.1); Basophils Percent Auto 0.7 % (0.2-2.0); Eosinophils Absolute Auto 0.4 10^3/uL (0.0-0.7); Eosinophils Percent Auto 4.5 % (0.9-7.0); Hematocrit 38.8 % (36.0-48.0); Hemoglobin 12.4 g/dL (12.0-16.0); Immature Granulocytes Abs Auto 0.03 10^3/uL (0.00-0.03); Immature Granulocytes Pct Auto 0.4 % (0.0-0.5); Lymphocytes Absolute Auto 1.3 10^3/uL (1.2-3.8); Lymphocytes Percent Auto 15.6 % (20.5-60.0); Mean Corpuscular Hemoglobin 26.7 pg (26.7-34.0); Mean Corpuscular Volume 83.6 fL (81.0-99.0); Mean Platelet Volume 10.3 fL (9.5-13.5); Monocytes Absolute Auto 0.5 10^3/uL (0.3-0.8); Monocytes Percent Auto 5.6 % (1.7-12.0); Neutrophils Percent Auto 73.2 % (43.0-75.0); Platelet Count 326 10^3/uL (150-450); Red Blood Count 4.64 10^6/uL (4.20-5.40); Red Cell Distribution Width 14.5 % (11.0-15.0); White Blood Count 8.2 10^3/uL (4.0-11.0)
[2024-11-07 18:42] LABS: Anion Gap 13.3; BUN Creatinine Ratio 28.8; Calcium 9.4 mg/dL (8.5-10.1); Chloride 105 mmol/L (98-107); Estimated GFR (African America >60 (>=60 mL/min/1.73m^2); Estimated GFR (Non-African Ame >60 (>=60 mL/min/1.73m^2); Glucose 108 mg/dL (74-106); Potassium 3.3 mmol/L (3.5-5.1); Sodium 144 mmol/L (136-145); Troponin I High Sensitivity 7.7 pg/mL (4.0-51.3)
[2024-11-07 19:22] LABS: Troponin I High Sensitivity 8.4 pg/mL (4.0-51.3)
--- NOTE | 2024-11-07 19:27 | ED_ITS ---
HPI - Chest Pain General Chief Complaint: Chest Pain Stated Complaint: chest pain Time Seen by Provider: 11/07/24 17:49 Source: patient Mode of arrival: walk-in History of Present Illness HPI narrative: I received this patient at 1900 to cover for my colleague. He explained to me that the patient is a 69-year-old female who presented to the emergency with chest pain while sitting on the couch. She had not had any recent exertional chest pain or shortness of breath. Chest pain was located on left side of her chest. No radiation. She did not have any other symptoms such as shortness of breath, diaphoresis, or nausea. She does not have a known past history of coronary artery disease. No known past medical history of coronary artery disease, hypertension, or diabetes. Patient was pending a second troponin after an unremarkable chest pain workup. Second troponin is negative without any significant delta change. She does have a history of high blood pressure but is very well-controlled. In fact, she just saw her space scheduler last week. There were no changes to her medication regimen. Patient has a low heart score and I do believe that is safe for this patient to go home. I went in and introduced myself to the patient. I explained all of the results to the patient. Patient does not have any other questions and answered everything to their satisfaction. Family is at bedside and understands. Patient states that she does have fibromyalgia and that may be playing a part in her symptoms today but she would just wanted to make sure. Told the patient if her symptoms return or she is uneasy that she should return to the ER and we could further discuss or consider the next steps in the process. Diagnosis: Chest pain Disposition: Discharge Condition: Stable Follow-up: Hospice Massage Therapist or PCP at regularly scheduled appointment. Please return if your symptoms worsen or change. Related Data Allergies Allergy/AdvReac Type Severity Reaction Status Date / Time No Known Drug Allergies Allergy Verified 06/02/24 21:31 PFSH PFSH Social History Little interest or pleasure in doing things: not at all Feeling down, depressed, or hopeless: not at all Exam Constitutional Vital Signs, click to edit/add: Last Vital Signs Temp 97.7 F 11/07/24 17:47 Pulse 79 11/07/24 19:30 Resp 14 11/07/24 19:30 BP 153/83 H 11/07/24 17:47 Pulse Ox 97 05/29/25 19:30 O2 Del Method Room Air 11/07/24 17:54 Course Vital Signs Vital signs: Vital Signs Temperature 97.7 F 11/07/24 17:47 Pulse Rate 86 11/07/24 17:47 Respiratory Rate 20 11/07/24 17:47 Blood Pressure 153/83 H 11/07/24 17:47 Pulse Oximetry 96 11/07/24 17:47 Oxygen Delivery Method Room Air 11/07/24 17:47 Temperature 97.7 F 11/07/24 17:47 Pulse Rate 79 11/07/24 19:30 Respiratory Rate 14 11/07/24 19:30 Blood Pressure 153/83 H 11/07/24 17:47 Pulse Oximetry 97 11/07/24 19:30 Oxygen Delivery Method Room Air 11/07/24 17:54 MDM - Chest Pain Lab Data Labs: Lab Results 11/07/24 11/07/24 Range/Units 17:52 18:57 WBC 8.2 (4.0-11.0) 10^3/uL RBC 4.64 (4.20-5.40) 10^6/uL Hgb 12.4 (12.0-16.0) g/dL Hct 38.8 (36.0-48.0) % MCV 83.6 (81.0-99.0) fL MCH 26.7 (26.7-34.0) pg MCHC 32.0 (29.9-35.2) g/dL RDW 14.5 (11.0-15.0) % Plt Count 326 (150-450) 10^3/uL MPV 10.3 (9.5-13.5) fL Neut % (Auto) 73.2 (43.0-75.0) % Lymph % (Auto) 15.6 L (20.5-60.0) % [place] % (Auto) 5.6 (1.7-12.0) % Eos % (Auto) 4.5 (0.9-7.0) % Baso % (Auto) 0.7 (0.2-2.0) % Neut # (Auto) 6.0 (1.4-6.5) 10^3/uL Lymph # (Auto) 1.3 (1.2-3.8) 10^3/uL [place] # (Auto) 0.5 (0.3-0.8) 10^3/uL Eos # (Auto) 0.4 (0.0-0.7) 10^3/uL Baso # (Auto) 0.1 (0.0-0.1) 10^3/uL Abs Immat Gran (auto) 0.03 (0.00-0.03) 10^3/uL Imm/Tot Granulo (auto) 0.4 (0.0-0.5) % Sodium 144 (136-145) mmol/L Potassium 3.3 L (3.5-5.1) mmol/L Chloride 105 (98-107) mmol/L Carbon Dioxide 29.0 (21.0-32.0) mmol/L Anion Gap 13.3 BUN 17.0 (7.0-18.0) mg/dL Creatinine 0.59 (0.55-1.02) mg/dL Est GFR ( Amer) >60 (>=60 mL/min/1.73m^2) Est GFR (Non-Af Amer) >60 (>=60 mL/min/1.73m^2) BUN/Creatinine Ratio 28.8 Glucose 108 H (74-106) mg/dL Calcium 9.4 (8.5-10.1) mg/dL Troponin I High Sens 7.7 8.4 (4.0-51.3) pg/mL Discharge Plan Discharge Chief Complaint: Chest Pain Clinical Impression: Chest pain Patient Disposition: Home, Self-Care Time of Disposition Decision: 19:34 Condition: Good Mode of Transportation: Private Vehicle Print Language: Welsh Instructions: Chest Pain (ED) Additional Instructions: Thank you for trusting me with your care today. Please make sure you follow-up with your primary care physician or space scheduler. Return to the emergency department if your symptoms return. Have a great weekend. Referrals: Physician,Non-Staff, MD [Primary Care Provider] - 1 week
== END 2024-11-07 19:43 | disposition home or self-care (01) ==
PROVIDERS: Emergency Medicine; Emergency Provider Emergency Medicine
DX: R07.89 Other chest pain (principal); I45.10 Unspecified right bundle-branch block
CPT/HCPCS: 36415; 71045; 80048; 84484; 85025; 93005; 99285